=== PATIENT | male | born 1970 | race Caucasian/White ===

== ENCOUNTER → 2017-12-13 12:40 | Outpatient (POV) | payer MEDICARE, OTHER, SELFPAY | PROVIDERS: Visit Provider Neurological Surgery | DX: Z00.00 Encounter for general adult medical examination without abnormal findings (principal) ==

== ENCOUNTER 2019-10-15 13:18 | Inpatient (IN) ==
--- NOTE | 2019-10-15 13:45 | Emergency Department Note ---
ED Disposition Clinical Impression: Hyponatremia, Hypokalemia Disposition: Admitted As Inpatient Condition on Discharge: Fair - Critical Care Critical Care Time: No Attestation: On 10/15/19, the high probability of a clinically significant, sudden or life threatening deterioration of the following system(s) required my full and direct attention, intervention and personal management. The time I documented below is in addition to time spent performing reported procedures but includes the following listed in this critical care notation. Medical Decision Making - Medical Records Medical records reviewed: Yes: I reviewed the patient's medical records. - Myron Inquiry Pt receiving controlled substance: No Vital Signs: 10/15/19 13:19 10/15/19 13:36 Temperature 98.5 F Temperature Source Oral Pulse Rate [Right Brachial] 71 69 Respiratory Rate 18 Blood Pressure [Right Arm] 85/40 L 90/45 L Blood Pressure Mean [Right Arm] 55 60 Blood Pressure Source [Right Arm] Manual Cuff/ Doppler Manual Cuff/ Auscultation Blood Pressure Position [Right Arm] Sitting 02 Sat by Pulse Oximetry 98 98 Oxygen Delivery Method Room Air - Lab Data Lab Results 10/15/19 14:00: WBC 7.7, RBC 4.15 L, Hgb 10.8 L, Hct 33.3 L, MCV 80.2, MCH 26.1 L, MCHC 32.5, RDW 20.6 H, Plt Count 216, MPV 7.7, Neut % (Auto) 85.2 H, Lymph % (Auto) 9.1 L, [place] % (Auto) 4.9, Eos % (Auto) 0.6, Baso % (Auto) 0.1, Neut # (Auto) 6.5, Lymph # (Auto) 0.7, [place] # (Auto) 0.4, Eos # (Auto) 0.1, Baso # (Auto) 0.0 10/15/19 14:00: Sodium 121 L, Potassium 2.2 L*, Chloride 81 L, Carbon Dioxide 39 H, Anion Gap 3.2 L, BUN 7, Creatinine 0.59 L, Estimated Creat Clear 128, Estimated GFR 147, Est GFR ( Amer) 177, Glucose 86, Calcium 7.7 L 10/15/19 14:00: B-Natriuretic Peptide 88 Result diagrams: 10/15/19 14:00 10/15/19 14:00 Orders (Tests/Meds): ED MEDICATIONS Discontinued Medications Generic Name Dose Route Start Last Admin Trade Name Gwen PRN Reason Stop Dose Admin Potassium Chloride 40 meq 10/15/19 14:29 Klor-Con 20meq Tablet PO 10/15/19 14:30 ONCE ONE ORDERS Category Date Time Status Complete Blood Count Auto Diff Stat Lab 10/15/19 14:00 Results Potassium Stat Lab 10/15/19 14:29 Ordered EKG Request [ECG Request by Dr/Nse] Stat Y 10/15/19 14:31 Ordered - ECG Data Tracing #1 I reviewed this ECG and interpreted as documented below: EKG shows a paced rhythm. No STEMI. Expected wide QRS with associated prolonged QTC. Medical Decision Narrative: Patient with baseline blood pressure. I was able to speak with [facility] staff who states that they are primarily concerned about some increasing swelling on the left side of the body. This is not appreciated on my exam. He has no unilateral calf swelling or tenderness. He is already on Xarelto. He has a very low Well's score and my pretest probablility for DVT is very low. Patient has absolutely no complaints. No respiratory distress, oxygen saturation 98%. Labs do show that he has significant hyponatremia and hypokalemia. He does take Flomax and spironolactone which is likely contributing to these electrolyte abnormalities. Given oral potassium replacement, 40 mEq and currently getting a bolus of fluids. I discussed this case with Dr. Baker and patient will be admitted for further management. General Adult HPI - General Chief complaint: Weakness Stated complaint: swelling Time Seen by Provider: 10/15/19 13:45 Mode of Arrival: EMS Limitations: No Limitations Description of Symptoms (Recalled from ER Triage Doc. by RN): Pt sent from [facility] [place] with c/o left side swelling, hypotension and currently being treated for UTI - History of Present Illness HPI narrative: This is a 49-year-old male with a past medical history significant for congestive heart failure, cerebral palsy, hyperlipidemia who presents to the emergency department for evaluation of extremity swelling and low blood pressure. Patient states that he always has low blood pressure and this is likely true given his history of significant chronic heart failure. Previous primary care visit on 10/06 shows a baseline blood pressure of 87 systolic. Patient actually has no acute complaints and states he is just here because the caregivers at his assisted living facility said that he was "swallowing". They report here his that they were concerned about left-sided swelling of the body and low blood pressure. Patient is currently being treated for UTI with Keflex, has no complaints in this arena. He denies any difficulty breathing. - Related Data Home Medications Medication Instructions Recorded Confirmed aspirin 81 mg tablet,delayed 81 mg PO DAILY 03/03/19 10/06/19 release atorvastatin 20 mg tablet 20 mg PO DAILY 03/03/19 10/06/19 budesonide-formoterol HFA 160 2 puff INHALATION BID 03/03/19 10/06/19 mcg-4.5 mcg/actuation aerosol inhaler buspirone 15 mg tablet 15 mg PO QID tab 03/03/19 10/06/19 divalproex 250 mg tablet,delayed 750 mg PO BID tab 03/03/19 10/06/19 release fluticasone propionate 220 1 puff INHALATION BID 03/03/19 10/06/19 mcg/actuation HFA aerosol inhaler ipratropium-albuterol 0.5 mg-3 3 ml INHALATION QID PRN 03/03/19 10/06/19 mg(2.5 mg base)/3 mL nebulization soln isosorbide mononitrate 30 mg 30 mg PO DAILY 03/03/19 10/06/19 tablet,extended release 24 hr lisinopril 2.5 mg tablet 2.5 mg PO DAILY 03/03/19 10/06/19 lorazepam 0.5 mg tablet 0.5 mg PO QHS PRN 03/03/19 10/06/19 magnesium oxide 400 mg PO BID 03/03/19 10/06/19 metoprolol succinate 50 mg 50 mg PO DAILY 03/03/19 10/06/19 tablet,extended release 24 hr mirtazapine 7.5 mg tablet 7.5 mg PO BID tab 03/03/19 10/06/19 multivitamin 1 tab PO DAILY 03/03/19 10/06/19 nitroglycerin 0.4 mg sublingual 0.4 mg SUBLINGUAL Q5-15M PRN 03/03/19 10/06/19 tablet omeprazole 20 mg capsule,delayed 20 mg PO DAILY 03/03/19 10/06/19 release oxycodone-acetaminophen 10 mg-325 1 tab PO Q8H PRN 03/03/19 10/06/19 mg tablet polyethylene glycol 3350 17 17 g PO DAILY 03/03/19 10/06/19 gram/dose oral powder rivaroxaban 20 mg tablet 20 mg PO DAILY 03/03/19 10/06/19 sennosides 8.6 mg tablet 8.6 mg PO BID PRN 03/03/19 10/06/19 spironolactone 25 mg tablet 25 mg PO DAILY 03/03/19 10/06/19 amiodarone 200 mg tablet 100 mg PO DAILY tab 06/02/19 10/06/19 finasteride 5 mg tablet 5 mg PO DAILY 06/02/19 10/06/19 furosemide 40 mg tablet 40 mg PO DAILY 06/02/19 10/06/19 gabapentin 600 mg tablet 300 mg PO TID tab 06/02/19 10/06/19 levothyroxine 25 mcg capsule 25 mcg PO DAILY 06/02/19 10/06/19 olanzapine 10 mg tablet 20 mg PO DAILY tab 06/02/19 10/06/19 risperidone 1 mg tablet 2 mg PO BID tab 06/02/19 10/06/19 sertraline 100 mg tablet 100 mg PO DAILY tab 06/02/19 10/06/19 tamsulosin 0.4 mg capsule 0.4 mg PO DAILY 06/02/19 10/06/19 Allergies Allergy/AdvReac Type Severity Reaction Status Date / Time acetaminophen [ACETAMINOPHEN] Allergy Unknown Verified 10/06/19 11:08 hydrocodone [HYDROCODONE] Allergy Unknown Verified 10/06/19 11:08 Penicillins [PENICILLINS] Allergy Unknown Verified 10/06/19 11:08 [facility] History - Hepatitis A Screen Drug use history?: No High risk sexual behaviors?: No History of sexually transmitted infection?: No Currently employed?: No Childcare worker?: No Do you have indoor plumbing?: Yes Do you have electricity?: Yes Attestation statement:: This patient has been screened for Hepatitis A risk factors. I have reviewed the patient's past medical history: Yes Medical History: Reports:: Anxiety, Cardiomyopathy, Chronic Obstructive Pulmonary Disease (COPD), Coronary Artery Disease, Hyperlipidemia, Internal Pacemaker Other Surgeries: Yes: Pacemaker Amputation: No Fractures: No - Social History Smoking Status: Current every day smoker Tobacco Type: cigarettes #Yrs smoked (if former smoker): 30 Alcohol Intake: never Alcohol Intake Frequency:: 0-2 drinks per day Substance Use Type: denies use Occupational Status: disabled, unemployed Housing: assisted living facility Household Members: caregiver - Psychiatric History Pschychiatric History:: Reports:: Anxiety Family Hx:: Coronary Artery Disease ROS Obtained: Yes All systems reviewed & no additional complaints Physical Exam - General General appearance: alert, in no apparent distress - Head Head exam: atraumatic, normocephalic - Neck Neck exam: Present: normal inspection, trachea midline - Chest Chest inspection: Present: normal inspection, symmetric chest wall rise. Absent: tenderness - Respiratory Respiratory exam: Present: normal lung sounds bilaterally. Absent: respiratory distress - Cardiovascular Cardiovascular exam: Present: regular rate, normal rhythm. Absent: JVD - Abdominal Exam Abdominal exam: Present: soft, normal bowel sounds. Absent: distention, tenderness, guarding - Extremities Exam Extremities exam: Present: normal inspection, other (No unilateral swelling or tenderness). Absent: tenderness, pedal edema, calf tenderness - Neurological Exam Neurological exam: Present: alert, other (Answering questions appropriately, moving extremities with equal strength) - Skin Skin exam: Present: warm, dry
[2019-10-15 14:19] LABS: Basophils % 0.1 % (0.1-2.0); Eosinophils # 0.1 K/mm3 (0.0-0.4); Eosinophils % 0.6 % (0.1-12.0); Hematocrit 33.3 % (42.0-52.0); Hemoglobin 10.8 g/dL (14.1-18.0); Lymphocytes # 0.7 K/mm3 (0.7-4.5); Lymphocytes % 9.1 % (10-50); Mean Corpuscular HGB Conc 32.5 g/dL (31.8-35.4); Mean Corpuscular Volume 80.2 fl (80-94); Mean Platelet Volume 7.7 fl (7.4-10.4); Monocytes # 0.4 K/mm3 (0.1-1.0); Monocytes % 4.9 % (1.7-9.3); Neutrophils # 6.5 K/mm3 (1.8-7.8); Neutrophils % 85.2 % (37.0-80.0); Platelet Count 216 K/mm3 (142-424); Red Blood Count 4.15 M/mm3 (4.60-6.20); Red Cell Distribution Width 20.6 % (11.5-17.5); White Blood Count 7.7 K/mm3 (4.8-10.8)
[2019-10-15 14:21] LABS: Anion Gap 3.2 mEq/L (5-15); Calcium 7.7 mg/dL (8.5-10.1)
[2019-10-15 14:43] LABS: Hypochromasia 2+; Lymphocytes % 9 % (10-50); Monocytes % 3 % (2-9); Neutrophils % 88 % (42-76); Total Cells Counted 100
--- NOTE | 2019-10-15 16:32 | History & Physical Report ---
*Admission Date: 10/15/19 *Chief complaint: weakness *History of present illness: this [facility]m from [facility] sent to ed for eval of swelling -he was seen in the ed - is is a 49-year-old male with a past medical history significant for congestive heart failure, cerebral palsy, hyperlipidemia who presents to the emergency department for evaluation of extremity swelling and low blood pressure. Patient states that he always has low blood pressure and this is likely true given his history of significant chronic heart failure. Previous primary care visit on 10/06 shows a baseline blood pressure of 87 systolic. Patient actually has no acute complaints and states he is just here because the caregivers at his as sisted living facility said that he was "swallowing". They report here his that they were concerned about left-sided swelling of the body and low blood pressure. Patient is currently being treated for UTI with Keflex, has no complaints in this arena. He denies any difficulty breathing. pt was admittted with hypokalemia and hyponatremia and possible uti [facility] History I have reviewed the patient's past medical history: Yes Medical History: Reports:: Anxiety, Cardiomyopathy, Chronic Obstructive Pulmonary Disease (COPD), Coronary Artery Disease, Hyperlipidemia, Internal Pacemaker Denies:: Diabetes Mellitus Type 2 *Have you ever received a pneumonia vaccine?: No (refuses) *Have you received a flu vaccine this season?: No (refuses) Other Medical History: Reports: Cataracts Other Surgeries: Yes: Pacemaker Amputation: No Fractures: No - *Social History Smoking Status: Current every day smoker Tobacco Type: cigarettes # Packs/Day (cigarettes): 1 #Yrs smoked (if former smoker): 30 Alcohol Intake: never Alcohol Intake Frequency:: 0-2 drinks per day Substance Use Type: denies use *Occupational Status:: disabled, unemployed Housing: assisted living facility Household Members: caregiver *Travel in the last 8 weeks: None - Psychiatric History Pschychiatric History:: Reports:: Anxiety Family Hx:: Coronary Artery Disease Review of Systems - Review of Systems Review of systems:: pertinent systems reviewed and negative unless documented below - Constitutional Denies fever(s) - Eyes Denies change in vision - ENT Reports dry mouth - *Cardiovascular Reports shortness of breath - *Respiratory Reports shortness of breath, Denies cough - *Gastrointestinal Denies bright, red blood in stools - *Genitourinary Denies blood in urine - *Musculoskeletal Denies joint pain - Integumentary/Breasts Denies rash - *Neurologic Reports weakness, Denies localized weakness, Denies seizure-like activity - Psychiatric Reports anxiety Meds Home Medications Medication Instructions Recorded Confirmed Type atorvastatin 20 mg tablet 20 mg PO HS 03/03/19 10/15/19 History buspirone 15 mg tablet 15 mg PO QID tab 03/03/19 10/15/19 History divalproex 250 mg tablet,delayed 750 mg PO BID tab 03/03/19 10/15/19 History release isosorbide mononitrate 30 mg 30 mg PO DAILY 03/03/19 10/15/19 History tablet,extended release 24 hr lisinopril 2.5 mg tablet 2.5 mg PO BID 03/03/19 10/15/19 History lorazepam 0.5 mg tablet 0.5 mg PO QHS PRN 03/03/19 10/15/19 History metoprolol succinate 50 mg 50 mg PO DAILY 03/03/19 10/15/19 History tablet,extended release 24 hr mirtazapine 7.5 mg tablet 7.5 mg PO HS tab 03/03/19 10/15/19 History nitroglycerin 0.4 mg sublingual 0.4 mg SUBLINGUAL Q5MINP PRN 03/03/19 10/15/19 History tablet oxycodone-acetaminophen 10 mg-325 1 tab PO Q6HP PRN 03/03/19 10/15/19 History mg tablet rivaroxaban 20 mg tablet 20 mg PO DAILY 03/03/19 10/15/19 History spironolactone 25 mg tablet 25 mg PO DAILY 03/03/19 10/15/19 History amiodarone 200 mg tablet 100 mg PO DAILY tab 06/02/19 10/15/19 History furosemide 40 mg tablet 40 mg PO DAILY 06/02/19 10/15/19 History levothyroxine 25 mcg capsule 25 mcg PO DAILY 06/02/19 10/15/19 History risperidone 1 mg tablet 1 mg PO BID tab 06/02/19 10/15/19 History tamsulosin 0.4 mg capsule 0.4 mg PO DAILY 06/02/19 10/15/19 History Albuterol Sulfate [Albuterol HFA 2 puffs IH Q4HP PRN 10/15/19 10/15/19 History Inhaler] Aspirin [Aspirin 81mg chewable 81 mg PO DAILY 10/15/19 10/15/19 History tab] Cyanocobalamin (Vitamin B-12) 1,000 mcg PO DAILY 10/15/19 10/15/19 History [Vitamin B-12 1000mcg Tablet] Gabapentin [Gabapentin 300mg Cap] 300 mg PO TID 10/15/19 10/15/19 History Nicotine [Nicotine Patch 21 mg TD DAILY 10/15/19 10/15/19 History 21mg/24hrs] OLANZapine [Olanzapine] 10 mg PO BID 10/15/19 10/15/19 History Pantoprazole Sodium [Protonix 40mg 40 mg PO DAILY 10/15/19 10/15/19 History tablet] Sertraline HCl [Zoloft 50mg tablet] 50 mg PO PM 10/15/19 10/15/19 History Sertraline HCl [Zoloft] 100 mg PO DAILY 10/15/19 10/15/19 History cephALEXin [cephALEXin 500mg 500 mg PO BID 10/15/19 10/15/19 History capsule*] guaiFENesin [Mucinex 600mg tablet] 600 mg PO BID 10/15/19 10/15/19 History Allergies Allergy/AdvReac Type Severity Reaction Status Date / Time acetaminophen [ACETAMINOPHEN] Allergy Unknown Verified 10/06/19 11:08 hydrocodone [HYDROCODONE] Allergy Unknown Verified 10/06/19 11:08 Penicillins [PENICILLINS] Allergy Unknown Verified 10/06/19 11:08 Exam Vital signs and Labs for Last 24 Hours: Temp Pulse Resp BP Pulse Ox 98.5 F 74 18 110/75 90 L 10/15/19 15:31 10/15/19 15:31 10/15/19 15:31 10/15/19 15:31 10/15/19 15:23 Laboratory Results - last 24 hr 10/15/19 14:00: WBC 7.7, RBC 4.15 L, Hgb 10.8 L, Hct 33.3 L, MCV 80.2, MCH 26.1 L, MCHC 32.5, RDW 20.6 H, Plt Count 216, MPV 7.7, Neut % (Auto) 85.2 H, Lymph % (Auto) 9.1 L, [place] % (Auto) 4.9, Eos % (Auto) 0.6, Baso % (Auto) 0.1, Neut # (Auto) 6.5, Lymph # (Auto) 0.7, [place] # (Auto) 0.4, Eos # (Auto) 0.1, Baso # (Auto) 0.0, Total Counted 100, Neutrophils % (Manual) 88 H, Lymphocytes % (Manual) 9 L, Monocytes % (Manual) 3, Platelet Estimate Normal, Hypochromasia 2+ 10/15/19 14:00: Sodium 121 L, Potassium 2.2 L*, Chloride 81 L, Carbon Dioxide 39 H, Anion Gap 3.2 L, BUN 7, Creatinine 0.59 L, Estimated Creat Clear 128, Estimated GFR 147, Est GFR ( Amer) 177, Glucose 86, Calcium 7.7 L 10/15/19 14:00: B-Natriuretic Peptide 88 I & O for Last 24 hours: Intake & Output 10/13/19 10/14/19 10/15/19 10/16/19 11:59 11:59 11:59 11:59 Weight 116 lb 9 oz - Constitutional no acute distress, thin - *Routine HEENT Exam Head: Present: normocephalic Eye: Present: EOMI, PERRL ENT: Present: mucous membranes dry - *Routine Neck Exam Absent: JVD - *Routine Respiratory Exam Present: CTA bilaterally - *Routine Cardiovascular Exam Present: RRR, murmur - *Routine Abdominal Exam Present: soft - *Routine Extremities Exam Absent: calf tenderness - *Routine Skin Exam Present: intact - *Routine Neurological Exam Present: alert, CN II-XII intact. Absent: motor deficit - Routine Psychiatric Exam Present: anxious. Absent: good insight Assessment and Plan (1) Hypokalemia Current visit: Yes Status: Acute Category: Medical Code(s): E87.6 - Hypokalemia (2) Hyponatremia Current visit: Yes Status: Acute Category: Medical Code(s): E87.1 - Hypo- osmolality and hyponatremia (3) Chronic pain Current visit: No Status: Acute Qualifiers: Chronic pain type: other chronic pain Qualified Code(s): G89.29 - Other chr onic pain Category: Medical Code(s): G89.29 - Other chronic pain (4) Anemia Current visit: Yes Status: Acute Qualifiers: Anemia type: unspecified type Qualified Code(s): D64.9 - Anemia, unspecified Category: Medical Code(s): D64.9 - Anemia, unspecified (5) CAD (coronary artery disease) Current visit: No Status: Chronic Qualifiers: Coronary Disease-Associated Artery/Lesion type: [place] artery [place] vs. transplanted heart: [place] heart Associated angina: with other forms of angina Qualified Code(s): I25.118 - Atherosclerotic heart disease of [place] coronary artery with other forms of angina pectoris Category: Medical Code(s): I25.10 - Atherosclerotic heart disease of [place] coronary artery without angina pectoris (6) Hypocalcemia Current visit: Yes Status: Acute Category: Medical Code(s): E83.51 - Hypocalcemia (7) UTI (urinary tract infection) Current visit: Yes Status: Acute Qualifiers: Urinary tract infection type: site unspecified Hematuria presence: without hematuria Qualified Code(s): N39.0 - Urinary tract infection, site not s pecified Category: Medical Code(s): N39.0 - Urinary tract infection, site not specified
[2019-10-15 17:51] LABS: Anion Gap 4.4 mEq/L (5-15); Calcium 7.5 mg/dL (8.5-10.1)
[2019-10-15 20:44] LABS: Anion Gap 4.5 mEq/L (5-15); Calcium 7.7 mg/dL (8.5-10.1)
[2019-10-15 22:01] LABS: Microscopic, Urine URINE MICROSCOPIC (MICROSCOPIC)
[2019-10-15 22:03] LABS: Bilirubin,Urine Negative (Negative); Blood, Urine TRACE-I (Negative); Color,Urine YELLOW (Yellow); Glucose,Urine (UA) Negative (Negative); Ketones,Urine Negative (Negative); Leukocyte Esterase,Urine 3+ (Negative); Protein,Urine Negative (Negative); Urobilinogen,Urine >=8.0 EU/dl (0.2)
[2019-10-15 22:06] LABS: Appearance,Urine Slightly Cloudy (Clear)
[2019-10-15 22:17] LABS: Bacteria,Urine 2+ /lpf; Mucus,Urine 1+ /lpf
[2019-10-16 07:37] LABS: Lymphocytes # 0.7 K/mm3 (0.7-4.5)
[2019-10-16 07:46] LABS: Basophils % 0.3 % (0.1-2.0); Eosinophils # 0.2 K/mm3 (0.0-0.4); Eosinophils % 2.2 % (0.1-12.0); Hematocrit 38.4 % (42.0-52.0); Lymphocytes % 10.8 % (10-50); Mean Corpuscular HGB Conc 32.7 g/dL (31.8-35.4); Mean Corpuscular Volume 80.7 fl (80-94); Mean Platelet Volume 7.9 fl (7.4-10.4); Monocytes # 0.6 K/mm3 (0.1-1.0); Neutrophils # 5.3 K/mm3 (1.8-7.8); Neutrophils % 77.8 % (37.0-80.0); Platelet Count 188 K/mm3 (142-424); Red Blood Count 4.76 M/mm3 (4.60-6.20); Red Cell Distribution Width 20.7 % (11.5-17.5); White Blood Count 6.8 K/mm3 (4.8-10.8)
[2019-10-16 07:49] LABS: Hemoglobin 12.6 g/dL (14.1-18.0)
[2019-10-16 07:54] LABS: Anion Gap 7.3 mEq/L (5-15)
--- NOTE | 2019-10-16 09:16 | Electrocardiograph Report ---
APPROVED REPORT Exam: Resting ECG HR:68 bpm ECG Measurements Heart Rate 68 AXES AK 124 P 64 QRSd 150 QRS 262 QT 522 T53 QTc 555 <Conclusion> Electronic atrial pacemaker Right bundle branch block Anteroseptal infarct, age undetermined Abnormal ECG Electronically signed by : Tip Contreras, 10/16/2019 09:15:56
--- NOTE | 2019-10-16 11:12 | Consult Report ---
*Admission Date: 10/15/19 *Reason for consult:: Pt with indwelling hurtado *History of present illness: Patient is a 49-year-old white male with a history of congestive heart failure, cerebral palsy presents to the emergency room yesterday at [facility] for evaluation of lower extremity swelling and low blood pressure. Patient was coherent and is able to give some history. States he sent to [facility] nursing staff concerned. He is currently being treated for UTI with Keflex and has an indwelling Hurtado catheter for which urology was consulted. We were able to contact the patient's assisted-living staff who gave us more information about his past medical history. He sees a urologist in [facility] by the name of Steff Macias every 3 months. Apparently he has a history of prostate cancer which is being followed with watchful waiting. It is not documented why his Hurtado catheter was placed he has had it for almost a year and it is changed monthly by home health at the facility. He was last changed about 3 weeks ago by report. Urine culture was performed here but is pending. His white count is normal at 6.8. Kidney function is normal at 0.58. Clear urine in his catheter. Urinalysis did show positive nitrates 10-20 white cells but this was obtained from the catheter. [facility] History Medical History: Reports:: Anxiety, Cardiomyopathy, Chronic Obstructive Pulmonary Disease (COPD), Coronary Artery Disease, Hyperlipidemia, Internal Pacemaker Denies:: Diabetes Mellitus Type 2 *Have you ever received a pneumonia vaccine?: No (refuses) *Have you received a flu vaccine this season?: No (refuses) Other Medical History: Reports: Cataracts Other Surgeries: Yes: Pacemaker Amputation: No Fractures: No - *Social History Smoking Status: Current every day smoker Tobacco Type: cigarettes # Packs/Day (cigarettes): 1 #Yrs smoked (if former smoker): 30 Alcohol Intake: never Alcohol Intake Frequency:: 0-2 drinks per day Substance Use Type: denies use *Occupational Status:: disabled, unemployed Housing: assisted living facility Household Members: caregiver *Travel in the last 8 weeks: None - Psychiatric History Pschychiatric History:: Reports:: Anxiety Family Hx:: Coronary Artery Disease Review of Systems - Review of Systems Review of systems:: pertinent systems reviewed and negative unless documented below - *Neurologic Reports weakness, Denies localized weakness, Denies seizure-like activity Meds Home Medications Medication Instructions Recorded Confirmed Type atorvastatin 20 mg tablet 20 mg PO HS 03/03/19 10/15/19 History buspirone 15 mg tablet 15 mg PO QID tab 03/03/19 10/15/19 History divalproex 250 mg tablet,delayed 750 mg PO BID tab 03/03/19 10/15/19 History release isosorbide mononitrate 30 mg 30 mg PO DAILY 03/03/19 10/15/19 History tablet,extended release 24 hr lisinopril 2.5 mg tablet 2.5 mg PO BID 03/03/19 10/15/19 History lorazepam 0.5 mg tablet 0.5 mg PO QHS PRN 03/03/19 10/15/19 History metoprolol succinate 50 mg 50 mg PO DAILY 03/03/19 10/15/19 History tablet,extended release 24 hr mirtazapine 7.5 mg tablet 7.5 mg PO HS tab 03/03/19 10/15/19 History nitroglycerin 0.4 mg sublingual 0.4 mg SUBLINGUAL Q5MINP PRN 03/03/19 10/15/19 History tablet oxycodone-acetaminophen 10 mg-325 1 tab PO Q6HP PRN 03/03/19 10/15/19 History mg tablet rivaroxaban 20 mg tablet 20 mg PO DAILY 03/03/19 10/15/19 History spironolactone 25 mg tablet 25 mg PO DAILY 03/03/19 10/15/19 History amiodarone 200 mg tablet 100 mg PO DAILY tab 06/02/19 10/15/19 History furosemide 40 mg tablet 40 mg PO DAILY 06/02/19 10/15/19 History levothyroxine 25 mcg capsule 25 mcg PO DAILY 06/02/19 10/15/19 History risperidone 1 mg tablet 1 mg PO BID tab 06/02/19 10/15/19 History tamsulosin 0.4 mg capsule 0.4 mg PO DAILY 06/02/19 10/15/19 History Albuterol Sulfate [Albuterol HFA 2 puffs IH Q4HP PRN 10/15/19 10/15/19 History Inhaler] Aspirin [Aspirin 81mg chewable 81 mg PO DAILY 10/15/19 10/15/19 History tab] Cyanocobalamin (Vitamin B-12) 1,000 mcg PO DAILY 10/15/19 10/15/19 History [Vitamin B-12 1000mcg Tablet] Gabapentin [Gabapentin 300mg Cap] 300 mg PO TID 10/15/19 10/15/19 History Nicotine [Nicotine Patch 21 mg TD DAILY 10/15/19 10/15/19 History 21mg/24hrs] OLANZapine [Olanzapine] 10 mg PO BID 10/15/19 10/15/19 History Pantoprazole Sodium [Protonix 40mg 40 mg PO DAILY 10/15/19 10/15/19 History tablet] Sertraline HCl [Zoloft 50mg tablet] 50 mg PO PM 10/15/19 10/15/19 History Sertraline HCl [Zoloft] 100 mg PO DAILY 10/15/19 10/15/19 History cephALEXin [cephALEXin 500mg 500 mg PO BID 10/15/19 10/15/19 History capsule*] guaiFENesin [Mucinex 600mg tablet] 600 mg PO BID 10/15/19 10/15/19 History Allergies Allergy/AdvReac Type Severity Reaction Status Date / Time acetaminophen [ACETAMINOPHEN] Allergy Unknown Verified 10/06/19 11:08 hydrocodone [HYDROCODONE] Allergy Unknown Verified 10/06/19 11:08 Penicillins [PENICILLINS] Allergy Unknown Verified 10/06/19 11:08 Exam Vital signs and Labs for Last 24 Hours: Temp Pulse Resp BP Pulse Ox 98.1 F 69 18 117/67 95 10/16/19 08:00 10/16/19 08:00 10/16/19 08:00 10/16/19 08:00 10/16/19 08:00 Laboratory Results - last 24 hr 10/15/19 14:00: WBC 7.7, RBC 4.15 L, Hgb 10.8 L, Hct 33.3 L, MCV 80.2, MCH 26.1 L, MCHC 32.5, RDW 20.6 H, Plt Count 216, MPV 7.7, Neut % (Auto) 85.2 H, Lymph % (Auto) 9.1 L, [place] % (Auto) 4.9, Eos % (Auto) 0.6, Baso % (Auto) 0.1, Neut # (Auto) 6.5, Lymph # (Auto) 0.7, [place] # (Auto) 0.4, Eos # (Auto) 0.1, Baso # (Auto) 0.0, Total Counted 100, Neutrophils % (Manual) 88 H, Lymphocytes % (Manual) 9 L, Monocytes % (Manual) 3, Platelet Estimate Normal, Hypochromasia 2+ 10/15/19 14:00: Sodium 121 L, Potassium 2.2 L*, Chloride 81 L, Carbon Dioxide 39 H, Anion Gap 3.2 L, BUN 7, Creatinine 0.59 L, Estimated Creat Clear 128, Estimated GFR 147, Est GFR ( Amer) 177, Glucose 86, Calcium 7.7 L 10/15/19 14:00: B-Natriuretic Peptide 88 10/15/19 17:18: Sodium 125 L, Potassium 2.4 L*, Chloride 86 L, Carbon Dioxide 37 H, Anion Gap 4.4 L, BUN 7, Creatinine 0.72 D, Estimated Creat Clear 94, Estimated GFR 117, Est GFR ( Amer) 141 D, Glucose 95, Calcium 7.5 L 10/15/19 20:06: Sodium 126 L, Potassium 2.5 L*, Chloride 88 L, Carbon Dioxide 36 H, Anion Gap 4.5 L, BUN 6 L, Creatinine 0.67 L, Estimated Creat Clear 101, Estimated GFR 127, Est GFR ( Amer) 153, Glucose 83, Calcium 7.7 L 10/15/19 21:46: Urine Color Yellow, Urine Appearance Slightly cloudy, Urine pH 7.0, Ur Specific [place] 1.010, Urine Protein Negative, Urine Glucose (UA) Negative, Urine Ketones Negative, Urine Blood Trace-i, Urine Nitrate Positive, Urine Bilirubin Negative, Urine Urobilinogen >=8.0, Ur Leukocyte Esterase 3+ A, Urine RBC 3-5, Urine WBC 10-20, Urine Bacteria 2+, Urine Mucus 1+ 10/16/19 00:37: Potassium 3.4 L D 10/16/19 07:30: Sodium 125 L, Potassium 3.3 L, Chloride 87 L, Carbon Dioxide 34 H, Anion Gap 7.3, BUN 6 L, Creatinine 0.58 L, Estimated Creat Clear 119, Estimated GFR 150, Est GFR ( Amer) 181, Glucose 85, Calcium 8.0 L 10/16/19 07:30: WBC 6.8, RBC 4.76, Hgb 12.6 L D, Hct 38.4 L, MCV 80.7, MCH 26.4 L, MCHC 32.7, RDW 20.7 H, Plt Count 188, MPV 7.9, Neut % (Auto) 77.8, Lymph % (Auto) 10.8, [place] % (Auto) 9.0, Eos % (Auto) 2.2, Baso % (Auto) 0.3, Neut # (Auto) 5.3, Lymph # (Auto) 0.7, [place] # (Auto) 0.6, Eos # (Auto) 0.2, Baso # (Auto) 0.0 I & O for Last 24 hours: Intake & Output 10/13/19 10/14/19 10/15/19 10/16/19 23:59 23:59 23:59 23:59 Intake Total 512 / 752 2518 / 2518 Output Total 1201 / 1201 1851 / 1851 Balance -689 / -449 667 / 667 Weight 52.872 kg 54.006 kg Microbiology Reports for the Last 24 Hours: Microbiology 10/15/19 21:46 Urine,Catheterized Urine Culture - Preliminary Narrative: Thin white male in no apparent distress Head is normocephalic Pupils equal round react light Neck is symmetric Normal respiratory effort, patient does have some mild pectus incavatus. Abdomen normal to visual inspection Alert and oriented Internal Medicine - CN: Reslt - Labs CBC & Chem 7: 10/16/19 07:30 10/16/19 07:30 Labs: Short CBC 10/15/19 10/16/19 Range/Units 14:00 07:30 WBC 7.7 6.8 (4.8-10.8) K/mm3 Hgb 10.8 L 12.6 L D (14.1-18.0) g/dL Hct 33.3 L 38.4 L (42.0-52.0) % Plt Count 216 188 (142-424) K/mm3 [facility] 10/15/19 10/15/19 10/15/19 14:00 17:18 20:06 Sodium 121 L 125 L 126 L Potassium 2.2 L* 2.4 L* 2.5 L* Chloride 81 L 86 L 88 L Carbon Dioxide 39 H 37 H 36 H BUN 7 7 6 L Creatinine 0.59 L 0.72 D 0.67 L Glucose 86 95 83 Calcium 7.7 L 7.5 L 7.7 L 10/16/19 10/16/19 00:37 07:30 Sodium 125 L Potassium 3.4 L D 3.3 L Chloride 87 L Carbon Dioxide 34 H BUN 6 L Creatinine 0.58 L Glucose 85 Calcium 8.0 L Urine 10/15/19 Range/Units 21:46 Urine Color Yellow (Yellow) Urine Appearance Slightly cloudy (Clear) Urine pH 7.0 (5.0-8.5) Ur Specific [place] 1.010 (1.005-1.030) Urine Protein Negative (Negative) Urine Glucose (UA) Negative (Negative) Assessment and Plan (1) Hypokalemia Current visit: Yes Status: Acute Category: Medical Code(s): E87.6 - Hypokalemia (2) Hyponatremia Current visit: Yes Status: Acute Category: Medical Code(s): E87.1 - Hypo- osmolality and hyponatremia (3) Chronic pain Current visit: No Status: Acute Qualifiers: Chronic pain type: other chronic pain Qualified Code(s): G89.29 - Other chronic pain Category: Medical Code(s): G89.29 - Other chronic pain (4) Anemia Current visit: Yes Status: Acute Qualifiers: Anemia type: unspecified type Qualified Code(s): D64.9 - Anemia, unspecified Category: Medical Code(s): D64.9 - Anemia, unspecified (5) CAD (coronary artery disease) Current visit: No Status: Chronic Qualifiers: Coronary Disease-Associated Artery/Lesion type: [place] artery [place] vs. transplanted heart: [place] heart Associated angina: with other forms of angina Qualified Code(s): I25.118 - Atherosclerotic heart disease of [place] coronary artery with other forms of angina pectoris Category: Medical Code(s): I25.10 - Atherosclerotic heart disease of [place] coronary artery without angina pectoris (6) Hypocalcemia Current visit: Yes Status: Acute Category: Medical Code(s): E83.51 - H ypocalcemia (7) UTI (urinary tract infection) Current visit: Yes Status: Acute Qualifiers: Urinary tract infection type: site unspecified Hematuria presence: without hematuria Qualified Code(s): N39.0 - Urinary tract infection, site not specified Category: Medical Code(s): N39.0 - Urinary tract infection, site not specified (8) Cerebral palsy Current visit: Yes Status: Acute Category: Medical Code(s): G80.9 - Cerebral palsy, unspecified 49-year-old white male with cerebral palsy. He sees a urologist in [facility] for management of his prostate cancer. Is currently being monitored closely with serial PSAs. He has an indwelling Hurtado catheter that has been present for about a year. This is changed monthly. He sees his urologist every 3 months. No current acute urologic events. Patient to continue follow-ups with Dr. Macias in [place] for management of his Hurtado catheter and his prostate cancer.
--- NOTE | 2019-10-16 12:19 | Discharge Summary ---
General - General Admission date:: 10/15/19 Discharge date: 10/16/19 HPI HPI: this wm from nursing home sent to ed for eval of swelling -he was seen in the ed - is is a 49-year-old male with a past medical history significant for congestive heart failure, cerebral palsy, hyperlipidemia who presents to the emergency department for evaluation of extremity swelling and low blood pressure. Patient states that he always has low blood pressure and this is likely true given his history of significant chronic heart failure. Previous primary care visit on 10/06 shows a baseline blood pressure of 87 systolic. Patient actually has no acute complaints and states he is just here because the caregivers at his assisted living facility said that he was "swallowing". They report here his that they were concerned about left-sided swelling of the body and low blood pressure. Patient is currently being treated for UTI with Keflex, has no complaints in this arena. He denies any difficulty breathing. pt was admittted with hypokalemia and hyponatremia and possible uti Hospital Course Hospital Course: this wm from nursing home sent to ed for eval of swelling -he was seen in the ed - is is a 49-year-old male with a past medical history significant for congestive heart failure, cerebral palsy, hyperlipidemia who presents to the emergency department for evaluation of extremity swelling and low blood pressure. Patient states that he always has low blood pressure and this is likely true given his history of significant chronic heart failure. Previous primary care visit on 10/06 shows a baseline blood pressure of 87 systolic. Patient actually has no acute complaints and states he is just here because the caregivers at his assisted living facility said that he was "swallowing". They report here his that they were concerned about left-sided swelling of the body and low blood pressure. Patient is currently being treated for UTI with Keflex, has no complaints in this arena. He denies any difficulty breathing. pt was admittted with hypokalemia and hyponatremia and possible uti Urology has seen and recommends: Patient is a 49-year-old white male with a history of congestive heart failure, cerebral palsy presents to the emergency room yesterday at [facility] for evaluation of lower extremity swelling and low blood pressure. Patient was coherent and is able to give some history. States he sent to [facility] nursing staff concerned. He is currently being treated for UTI with Keflex and has an indwelling Gonzalez catheter for which urology was consulted. We were able to contact the patient's assisted-living staff who gave us more information about his past medical history. He sees a urologist in [facility] by the name of Steff Macias every 3 months. Apparently he has a history of prostate cancer which is being followed with watchful waiting. It is not documented why his Gonzalez catheter was placed he has had it for almost a year and it is changed monthly by home health at the facility. He was last changed about 3 weeks ago by report. Urine culture was performed here but is pending. His white count is normal at 6.8. Kidney function is normal at 0.58. Clear urine in his catheter. Urinalysis did show positive nitrates 10-20 white cells but this was obtained from the catheter (Per Dr. Vu). 49-year-old white male with cerebral palsy. He sees a urologist in [facility] for management of his prostate cancer. Is currently being monitored closely with serial PSAs. He has an indwelling Gonzalez catheter that has been present for about a year. This is changed monthly. He sees his urologist every 3 months. No current acute urologic events. Patient to continue follow-ups with Dr. Macias in [place] for management of his Gonzalez catheter and his prostate cancer (Per Dr. Vu). Objective Vital signs: Temp Pulse Resp BP Pulse Ox 98.1 F 69 18 117/67 95 10/16/19 08:00 10/16/19 08:00 10/16/19 08:00 10/16/19 08:00 10/16/19 08:00 Results Labs on day of discharge: Labs from last 24 hours 10/16/19 10/16/19 10/16/19 07:30 07:30 00:37 WBC 6.8 RBC 4.76 Hgb 12.6 L D Hct 38.4 L MCV 80.7 MCH 26.4 L MCHC 32.7 RDW 20.7 H Plt Count 188 MPV 7.9 Neut % (Auto) 77.8 Lymph % (Auto) 10.8 [place] % (Auto) 9.0 Eos % (Auto) 2.2 Baso % (Auto) 0.3 Neut # (Auto) 5.3 Lymph # (Auto) 0.7 [place] # (Auto) 0.6 Eos # (Auto) 0.2 Baso # (Auto) 0.0 Total Counted Neutrophils % (Manual) Lymphocytes % (Manual) Monocytes % (Manual) Platelet Estimate Hypochromasia Sodium 125 L Potassium 3.3 L 3.4 L D Chloride 87 L Carbon Dioxide 34 H Anion Gap 7.3 BUN 6 L Creatinine 0.58 L Estimated Creat Clear 119 Estimated GFR 150 Est GFR ( Amer) 181 Glucose 85 Calcium 8.0 L B-Natriuretic Peptide Urine Color Urine Appearance Urine pH Ur Specific [place] Urine Protein Urine Glucose (UA) Urine Ketones Urine Blood Urine Nitrate Urine Bilirubin Urine Urobilinogen Ur Leukocyte Esterase Urine RBC Urine WBC Urine Bacteria Urine Mucus 10/15/19 10/15/19 10/15/19 21:46 20:06 17:18 WBC RBC Hgb Hct MCV MCH MCHC RDW Plt Count MPV Neut % (Auto) Lymph % (Auto) [place] % (Auto) Eos % (Auto) Baso % (Auto) Neut # (Auto) Lymph # (Auto) [place] # (Auto) Eos # (Auto) Baso # (Auto) Total Counted Neutrophils % (Manual) Lymphocytes % (Manual) Monocytes % (Manual) Platelet Estimate Hypochromasia Sodium 126 L 125 L Potassium 2.5 L* 2.4 L* Chloride 88 L 86 L Carbon Dioxide 36 H 37 H Anion Gap 4.5 L 4.4 L BUN 6 L 7 Creatinine 0.67 L 0.72 D Estimated Creat Clear 101 94 Estimated GFR 127 117 Est GFR ( Amer) 153 141 D Glucose 83 95 Calcium 7.7 L 7.5 L B-Natriuretic Peptide Urine Color Yellow Urine Appearance Slightly cloudy Urine pH 7.0 Ur Specific [place] 1.010 Urine Protein Negative Urine Glucose (UA) Negative Urine Ketones Negative Urine Blood Trace-i Urine Nitrate Positive Urine Bilirubin Negative Urine Urobilinogen >=8.0 Ur Leukocyte Esterase 3+ A Urine RBC 3-5 Urine WBC 10-20 Urine Bacteria 2+ Urine Mucus 1+ 10/15/19 10/15/19 10/15/19 14:00 14:00 14:00 WBC 7.7 RBC 4.15 L Hgb 10.8 L Hct 33.3 L MCV 80.2 MCH 26.1 L MCHC 32.5 RDW 20.6 H Plt Count 216 MPV 7.7 Neut % (Auto) 85.2 H Lymph % (Auto) 9.1 L [place] % (Auto) 4.9 Eos % (Auto) 0.6 Baso % (Auto) 0.1 Neut # (Auto) 6.5 Lymph # (Auto) 0.7 [place] # (Auto) 0.4 Eos # (Auto) 0.1 Baso # (Auto) 0.0 Total Counted 100 Neutrophils % (Manual) 88 H Lymphocytes % (Manual) 9 L Monocytes % (Manual) 3 Platelet Estimate Normal Hypochromasia 2+ Sodium 121 L Potassium 2.2 L* Chloride 81 L Carbon Dioxide 39 H Anion Gap 3.2 L BUN 7 Creatinine 0.59 L Estimated Creat Clear 128 Estimated GFR 147 Est GFR ( Amer) 177 Glucose 86 Calcium 7.7 L B-Natriuretic Peptide 88 Urine Color Urine Appearance Urine pH Ur Specific [place] Urine Protein Urine Glucose (UA) Urine Ketones Urine Blood Urine Nitrate Urine Bilirubin Urine Urobilinogen Ur Leukocyte Esterase Urine RBC Urine WBC Urine Bacteria Urine Mucus Preliminary micro results at discharge 10/15/19 21:46 Urine Culture - Preliminary Urine,Catheterized DS: Diagnosis - Discharge Diagnosis (1) Hypokalemia Status: Acute (2) Hyponatremia Status: Acute (3) Chronic pain Status: Acute (4) Anemia Status: Acute (5) CAD (coronary artery disease) Status: Chronic (6) Hypocalcemia Status: Acute (7) UTI (urinary tract infection) Status: Acute (8) Cerebral palsy Status: Acute Discharge Plan - Patient Discharge Instructions ACTIVITY: Continue current activity DIET: continue same diet - Follow up Plan Home Medications: Home Medications Medication Instructions Recorded Confirmed Type atorvastatin 20 mg tablet 20 mg PO HS 03/03/19 10/15/19 History buspirone 15 mg tablet 15 mg PO QID tab 03/03/19 10/15/19 History divalproex 250 mg tablet,delayed 750 mg PO BID tab 03/03/19 10/15/19 History release isosorbide mononitrate 30 mg 30 mg PO DAILY 03/03/19 10/15/19 History tablet,extended release 24 hr lisinopril 2.5 mg tablet 2.5 mg PO BID 03/03/19 10/15/19 History lorazepam 0.5 mg tablet 0.5 mg PO QHS PRN 03/03/19 10/15/19 History metoprolol succinate 50 mg 50 mg PO DAILY 03/03/19 10/15/19 History tablet,extended release 24 hr mirtazapine 7.5 mg tablet 7.5 mg PO HS tab 03/03/19 10/15/19 History nitroglycerin 0.4 mg sublingual 0.4 mg SUBLINGUAL Q5MINP PRN 03/03/19 10/15/19 History tablet oxycodone-acetaminophen 10 mg-325 1 tab PO Q6HP PRN 03/03/19 10/15/19 History mg tablet rivaroxaban 20 mg tablet 20 mg PO DAILY 03/03/19 10/15/19 History spironolactone 25 mg tablet 25 mg PO DAILY 03/03/19 10/15/19 History amiodarone 200 mg tablet 100 mg PO DAILY tab 06/02/19 10/15/19 History furosemide 40 mg tablet 40 mg PO DAILY 06/02/19 10/15/19 History levothyroxine 25 mcg capsule 25 mcg PO DAILY 06/02/19 10/15/19 History risperidone 1 mg tablet 1 mg PO BID tab 06/02/19 10/15/19 History tamsulosin 0.4 mg capsule 0.4 mg PO DAILY 06/02/19 10/15/19 History Albuterol Sulfate [Albuterol HFA 2 puffs IH Q4HP PRN 10/15/19 10/15/19 History Inhaler] Aspirin [Aspirin 81mg chewable 81 mg PO DAILY 10/15/19 10/15/19 History tab] Cyanocobalamin (Vitamin B-12) 1,000 mcg PO DAILY 10/15/19 10/15/19 History [Vitamin B-12 1000mcg Tablet] Gabapentin [Gabapentin 300mg Cap] 300 mg PO TID 10/15/19 10/15/19 History Nicotine [Nicotine Patch 21 mg TD DAILY 10/15/19 10/15/19 History 21mg/24hrs] OLANZapine [Olanzapine] 10 mg PO BID 10/15/19 10/15/19 History Pantoprazole Sodium [Protonix 40mg 40 mg PO DAILY 10/15/19 10/15/19 History tablet] Sertraline HCl [Zoloft 50mg tablet] 50 mg PO PM 10/15/19 10/15/19 History Sertraline HCl [Zoloft] 100 mg PO DAILY 10/15/19 10/15/19 History cephALEXin [cephALEXin 500mg 500 mg PO BID 10/15/19 10/15/19 History capsule*] guaiFENesin [Mucinex 600mg tablet] 600 mg PO BID 10/15/19 10/15/19 History Prescriptions/Medication Reconciliation: No Action lorazepam 0.5 mg tablet 0.5 mg PO QHS PRN PRN Reason: Anxiety atorvastatin 20 mg tablet 20 mg PO HS buspirone 15 mg tablet 15 mg PO QID tab divalproex 250 mg tablet,delayed release 750 mg PO BID tab isosorbide mononitrate 30 mg tablet,extended release 24 hr 30 mg PO DAILY lisinopril 2.5 mg tablet 2.5 mg PO BID metoprolol succinate 50 mg tablet,extended release 24 hr 50 mg PO DAILY mirtazapine 7.5 mg tablet 7.5 mg PO HS tab nitroglycerin 0.4 mg sublingual tablet 0.4 mg SUBLINGUAL Q5MINP PRN PRN Reason: Chest Pain oxycodone-acetaminophen 10 mg-325 mg tablet 1 tab PO Q6HP PRN PRN Reason: pain spironolactone 25 mg tablet 25 mg PO DAILY rivaroxaban 20 mg tablet 20 mg PO DAILY amiodarone 200 mg tablet 100 mg PO DAILY tab risperidone 1 mg tablet 1 mg PO BID tab tamsulosin 0.4 mg capsule 0.4 mg PO DAILY levothyroxine 25 mcg capsule 25 mcg PO DAILY furosemide 40 mg tablet 40 mg PO DAILY Nicotine [Nicotine Patch 21mg/24hrs] 21 mg TD DAILY OLANZapine [Olanzapine] 10 mg PO BID Sertraline HCl [Zoloft 50mg tablet] 50 mg PO PM Albuterol Sulfate [Albuterol HFA Inhaler] 2 puffs IH Q4HP PRN PRN Reason: Shortness Of Breath Or Wheezing Cyanocobalamin (Vitamin B-12) [Vitamin B-12 1000mcg Tablet] 1,000 mcg PO DAILY Sertraline HCl [Zoloft] 100 mg PO DAILY Aspirin [Aspirin 81mg chewable tab] 81 mg PO DAILY Gabapentin [Gabapentin 300mg Cap] 300 mg PO TID guaiFENesin [Mucinex 600mg tablet] 600 mg PO BID Pantoprazole Sodium [Protonix 40mg tablet] 40 mg PO DAILY cephALEXin [cephALEXin 500mg capsule*] 500 mg PO BID - Problem Reconciliation Problems Reviewed?: Yes
--- NOTE | 2019-10-16 13:58 | Consult Report ---
History of Present Illness Consult date: 10/16/19 Requesting physician: Timbo Baker Consult reason: shortness of breath Chief complaint: SOA Additional Medical History:: 1. Ischemic Cardiomyopathy with LV aneurysm and V. tach, on Amiodarone and Xarelto A. AICD generator changed, 2009 and 02/2017 ([facility]) B. 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 CAD A. CABG at age 24 B. [facility], 05/2019, for pre-op evaluation for prostate surgery ANGIOGRAPHIC RESULTS: 1. The left main artery normal 2. The left anterior descending artery ostially occluded 3. The ramus intermedius is a moderate size vessel with mild 10-20% stenoses 4. The circumflex artery is a nondominant yet still large vessel with moderate vascular ectasia and slow filling but no stenosis greater than 10% 5. The right coronary artery is a large caliber codominant vessel with moderate vascular ectasia accompanied by slow CHRISTEN II flow 6. The GAITAN ventriculogram reveals severe left ventricular dilatation with severely reduced ejection fraction estimated at 20%. The apex is calcified aneurysmal with an apical intramural thrombus 7. The left ventricular end-diastolic pressure 10 mmHg 8. The saphenous vein graft to the right coronary artery is ostially occluded 9. The saphenous vein graft to the LAD is widely patent 10. The saphenous vein graft to the diagonal artery is widely patent IMPRESSION: 1. Adequate coronary artery revascularization as described above 2. Severely reduced ejection fraction with severe left ventricular dilatation accompanied by large aneurysmal calcified apical thrombosed apex 3. Normal left ventricular end-diastolic pressure 4. Chronically occluded saphenous vein graft to the right coronary artery 5. Widely patent saphenous vein graft to a diagonal artery 6. Widely patent saphenous vein graft to an LAD which supplies the aneurysmal akinetic anterior apical wall PLAN: 1. Patient is a acceptable risk to proceed with prostate surgery. 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 2. Correlation should be used perioperatively not to fluid overload patient. 3. Ongoing therapy for systolic congestive heart failure as well as standard therapy for ischemic heart disease 3. History of CVA, age 32 A. Chronic anticoagulation 4. Neurofibromatosis 5. Seizure Disorder 6. Tobacco use A. COPD/asthma 7. HTN 8. Hyperlipidemia History of present illness: 49-year-old white male resident of [facility] was sent to [facility] ER for evaluation of swelling. Patient has significant coronary history as noted above including congestive heart failure. BNP this admission is 88 but patient became more short of breath last evening and responded well to IV Lasix. Chest x-ray is pending at this time. Patient states that shortness of breath seems to be back to baseline. Patient's hyponatremia and hypokalemia have responded to therapy but are not yet back to normal. [facility] History Medical History: Reports:: Anxiety, Cardiomyopathy, Chronic Obstructive Pulmon barbra Disease (COPD), Coronary Artery Disease, Hyperlipidemia, Internal Pacemaker Denies:: Diabetes Mellitus Type 2 *Have you ever received a pneumonia vaccine?: No (refuses) *Have you received a flu vaccine this season?: No (refuses) Other Medical History: Reports: Cataracts Other Surgeries: Yes: Pacemaker Amputation: No Fractures: No - *Social History Smoking Status: Current every day smoker Tobacco Type: cigarettes # Packs/Day (cigarettes): 1 #Yrs smoked (if former smoker): 30 Alcohol Intake: never Alcohol Intake Frequency:: 0-2 drinks per day Substance Use Type: denies use *Occupational Status:: disabled, unemployed Housing: assisted living facility Household Members: caregiver *Travel in the last 8 weeks: None - Psychiatric History Pschychiatric History:: Reports:: Anxiety Family Hx:: Coronary Artery Disease Meds Home Medications Medication Instructions Recorded Confirmed Type atorvastatin 20 mg tablet 20 mg PO HS 03/03/19 10/15/19 History buspirone 15 mg tablet 15 mg PO QID tab 03/03/19 10/15/19 History divalproex 250 mg tablet,delayed 750 mg PO BID tab 03/03/19 10/15/19 History release isosorbide mononitrate 30 mg 30 mg PO DAILY 03/03/19 10/15/19 History tablet,extended release 24 hr lisinopril 2.5 mg tablet 2.5 mg PO BID 03/03/19 10/15/19 History lorazepam 0.5 mg tablet 0.5 mg PO QHS PRN 03/03/19 10/15/19 History metoprolol succinate 50 mg 50 mg PO DAILY 03/03/19 10/15/19 History tablet,extended release 24 hr mirtazapine 7.5 mg tablet 7.5 mg PO HS tab 03/03/19 10/15/19 History nitroglycerin 0.4 mg sublingual 0.4 mg SUBLINGUAL Q5MINP PRN 03/03/19 10/15/19 History tablet oxycodone-acetaminophen 10 mg-325 1 tab PO Q6HP PRN 03/03/19 10/15/19 History mg tablet rivaroxaban 20 mg tablet 20 mg PO DAILY 03/03/19 10/15/19 History spironolactone 25 mg tablet 25 mg PO DAILY 03/03/19 10/15/19 History amiodarone 200 mg tablet 100 mg PO DAILY tab 06/02/19 10/15/19 History furosemide 40 mg tablet 40 mg PO DAILY 06/02/19 10/15/19 History levothyroxine 25 mcg capsule 25 mcg PO DAILY 06/02/19 10/15/19 History risperidone 1 mg tablet 1 mg PO BID tab 06/02/19 10/15/19 History tamsulosin 0.4 mg capsule 0.4 mg PO DAILY 06/02/19 10/15/19 History Albuterol Sulfate [Albuterol HFA 2 puffs IH Q4HP PRN 10/15/19 10/15/19 History Inhaler] Aspirin [Aspirin 81mg chewable 81 mg PO DAILY 10/15/19 10/15/19 History tab] Cyanocobalamin (Vitamin B-12) 1,000 mcg PO DAILY 10/15/19 10/15/19 History [Vitamin B-12 1000mcg Tablet] Gabapentin [Gabapentin 300mg Cap] 300 mg PO TID 10/15/19 10/15/19 History Nicotine [Nicotine Patch 21 mg TD DAILY 10/15/19 10/15/19 History 21mg/24hrs] OLANZapine [Olanzapine] 10 mg PO BID 10/15/19 10/15/19 History Pantoprazole Sodium [Protonix 40mg 40 mg PO DAILY 10/15/19 10/15/19 History tablet] Sertraline HCl [Zoloft 50mg tablet] 50 mg PO PM 10/15/19 10/15/19 History Sertraline HCl [Zoloft] 100 mg PO DAILY 10/15/19 10/15/19 History cephALEXin [cephALEXin 500mg 500 mg PO BID 10/15/19 10/15/19 History capsule*] guaiFENesin [Mucinex 600mg tablet] 600 mg PO BID 10/15/19 10/15/19 History Allergies Allergy/AdvReac Type Severity Reaction Status Date / Time acetaminophen [ACETAMINOPHEN] Allergy Unknown Verified 10/06/19 11:08 hydrocodone [HYDROCODONE] Allergy Unknown Verified 10/06/19 11:08 Penicillins [PENICILLINS] Allergy Unknown Verified 10/06/19 11:08 Review of Systems - Review of Systems Review of systems:: pertinent systems reviewed and negative unless documented below - *Cardiovascular Reports chest pain, Reports shortness of breath - *Respiratory Reports chest congestion, Reports shortness of breath - *Gastrointestinal Denies abdominal pain, Denies vomiting - *Genitourinary Denies blood in urine Comments: Chronic catheter at this time due to history of prostate cancer surgery. Catheter is changed once a month. - *Musculoskeletal Reports back pain, Denies joint pain - *Neurologic Reports weakness, Denies localized weakness, Denies seizure-like activity Exam Vital signs and Labs for Last 24 Hours: Temp Pulse Resp BP Pulse Ox 97.9 F 68 16 118/90 93 L 10/16/19 12:00 10/16/19 12:00 10/16/19 13:02 10/16/19 12:00 10/16/19 12:00 Laboratory Results - last 24 hr 10/15/19 14:00: WBC 7.7, RBC 4.15 L, Hgb 10.8 L, Hct 33.3 L, MCV 80.2, MCH 26.1 L, MCHC 32.5, RDW 20.6 H, Plt Count 216, MPV 7.7, Neut % (Auto) 85.2 H, Lymph % (Auto) 9.1 L, [place] % (Auto) 4.9, Eos % (Auto) 0.6, Baso % (Auto) 0.1, Neut # (Auto) 6.5, Lymph # (Auto) 0.7, [place] # (Auto) 0.4, Eos # (Auto) 0.1, Baso # (Auto) 0.0, Total Counted 100, Neutrophils % (Manual) 88 H, Lymphocytes % (Man ual) 9 L, Monocytes % (Manual) 3, Platelet Estimate Normal, Hypochromasia 2+ 10/15/19 14:00: Sodium 121 L, Potassium 2.2 L*, Chloride 81 L, Carbon Dioxide 39 H, Anion Gap 3.2 L, BUN 7, Creatinine 0.59 L, Estimated Creat Clear 128, Estimated GFR 147, Est GFR ( Amer) 177, Glucose 86, Calcium 7.7 L 10/15/19 14:00: B-Natriuretic Peptide 88 10/15/19 17:18: Sodium 125 L, Potassium 2.4 L*, Chloride 86 L, Carbon Dioxide 37 H, Anion Gap 4.4 L, BUN 7, Creatinine 0.72 D, Estimated Creat Clear 94, Estimated GFR 117, Est GFR ( Amer) 141 D, Glucose 95, Calcium 7.5 L 10/15/19 20:06: Sodium 126 L, Potassium 2.5 L*, Chloride 88 L, Carbon Dioxide 36 H, Anion Gap 4.5 L, BUN 6 L, Creatinine 0.67 L, Estimated Creat Clear 101, Estimated GFR 127, Est GFR ( Amer) 153, Glucose 83, Calcium 7.7 L 10/15/19 21:46: Urine Color Yellow, Urine Appearance Slightly cloudy, Urine pH 7.0, Ur Specific [place] 1.010, Urine Protein Negative, Urine Glucose (UA) Negative, Urine Ketones Negative, Urine Blood Trace-i, Urine Nitrate Positive, U rine Bilirubin Negative, Urine Urobilinogen >=8.0, Ur Leukocyte Esterase 3+ A, Urine RBC 3-5, Urine WBC 10-20, Urine Bacteria 2+, Urine Mucus 1+ 10/16/19 00:37: Potassium 3.4 L D 10/16/19 07:30: Sodium 125 L, Potassium 3.3 L, Chloride 87 L, Carbon Dioxide 34 H, Anion Gap 7.3, BUN 6 L, Creatinine 0.58 L, Estimated Creat Clear 119, Estimated GFR 150, Est GFR ( Amer) 181, Glucose 85, Calcium 8.0 L 10/16/19 07:30: WBC 6.8, RBC 4.76, Hgb 12.6 L D, Hct 38.4 L, MCV 80.7, MCH 26.4 L, MCHC 32.7, RDW 20.7 H, Plt Count 188, MPV 7.9, Neut % (Auto) 77.8, Lymph % (Auto) 10.8, [place] % (Auto) 9.0, Eos % (Auto) 2.2, Baso % (Auto) 0.3, Neut # (Auto) 5.3, Lymph # (Auto) 0.7, [place] # (Auto) 0.6, Eos # (Auto) 0.2, Baso # (Auto) 0.0 I & O for Last 24 hours: Intake & Output 10/14/19 10/15/19 10/16/19 10/17/19 11:59 11:59 11:59 11:59 Intake Total 3030 / 3030 Output Total 3052 / 3052 Balance - Weight 119 lb 1 oz Microbiology Reports for the Last 24 Hours: Microbiology 10/15/19 21:46 Urine,Catheterized Urine Culture - Preliminary - *Routine HEENT Exam Head: Present: normocephalic Eye: Present: EOMI, PERRL ENT: Present: mucous membranes moist - *Routine Neck Exam Present: supple. Absent: JVD, carotid bruit - *Routine Respiratory Exam Present: rales, rhonchi, wheezes. Absent: accessory muscle use - *Routine Cardiovascular Exam Present: RRR. Absent: murmur, gallop, rubs - *Routine Abdominal Exam Present: soft. Absent: tenderness, distended, guarding - *Routine Extremities Exam Absent: edema, calf tenderness - *Routine Neurological Exam Present: alert, oriented X3, moving all extremities Assessment and Plan (1) Hypokalemia Current visit: Yes Status: Acute Category: Medical Code(s): E87.6 - Hypokalemia (2) Hyponatremia Current visit: Yes Status: Acute Category: Medical Code(s): E87.1 - Hypo- osmolality and hyponatremia (3) Chronic pain Current visit: No Status: Acute Qualifiers: Chronic pain type: other chronic pain Qualified Code(s): G89.29 - Other chronic pain Category: Medical Code(s): G89.29 - Other chronic pain (4) Anemia Current visit: Yes Status: Acute Qualifiers: Anemia type: unspecified type Qualified Code(s): D64.9 - Anemia, unspecified Category: Medical Code(s): D64.9 - Anemia, unspecified (5) CAD (coronary artery disease) Current visit: No Status: Chronic Qualifiers: Coronary Disease-Associated Artery/Lesion type: [place] artery [place] vs. transplanted heart: [place] heart Associated angina: with other forms of angina Qualified Code(s): I25.118 - Atherosclerotic heart disease of [place] coronary artery with other forms of angina pectoris Category: Medical Code(s): I25.10 - Atherosclerotic heart disease of [place] coronary artery without angina pectoris (6) Hypocalcemia Current visit: Yes Status: Acute Category: Medical Code(s): E83.51 - H ypocalcemia (7) UTI (urinary tract infection) Current visit: Yes Status: Acute Qualifiers: Urinary tract infection type: site unspecified Hematuria presence: without hematuria Qualified Code(s): N39.0 - Urinary tract infection, site not specified Category: Medical Code(s): N39.0 - Urinary tract infection, site not specified (8) Cerebral palsy Current visit: Yes Status: Acute Category: Medical Code(s): G80.9 - Cerebral palsy, unspecified - Assessment and plan all Dx Assessment and Plan for all problems:: 1. Obtain PA and lateral chest x-ray. 2. Patient is on daily Lasix and spironolactone which likely has been held due to the patient's hypokalemia and hyponatremia. Will restart aldactone at 25 mg BID and reduce lasix to 20 mg daily. 3. Ischemic Cardiomyopathy with history of V. Tach and AICD in situ. Continue metoprolol, isosorbide mononitrate and amiodarone. At last office visit, he was still on lisinopril but noted to have some orthostatic dizziness. His lisinopril likely has been discontinued in the interim, will restart at 2.5 mg daily. 4. Recommend monitoring overnight and repeating BMP in AM.
--- NOTE | 2019-10-16 18:03 | Progress Note ---
Internal Medicine - PN: Subj *Date: 10/16/19 *Time: 08:00 Interval history: 49 YOM sitting up in bed, on 2L per N/C. Denies CP or worsened SOA. F/C drng clr yellow urine Exam Vital signs and Labs for Last 24 Hours: Temp Pulse Resp BP Pulse Ox 97.9 F 68 16 118/90 93 L 10/16/19 12:00 10/16/19 12:00 10/16/19 13:02 10/16/19 12:00 10/16/19 12:00 Laboratory Results - last 24 hr 10/15/19 17:18: Sodium 125 L, Potassium 2.4 L*, Chloride 86 L, Carbon Dioxide 37 H, Anion Gap 4.4 L, BUN 7, Creatinine 0.72 D, Estimated Creat Clear 94, Estimated GFR 117, Est GFR ( Amer) 141 D, Glucose 95, Calcium 7.5 L 10/15/19 20:06: Sodium 126 L, Potassium 2.5 L*, Chloride 88 L, Carbon Dioxide 36 H, Anion Gap 4.5 L, BUN 6 L, Creatinine 0.67 L, Estimated Creat Clear 101, Estimated GFR 127, Est GFR ( Amer) 153, Glucose 83, Calcium 7.7 L 10/15/19 21:46: Urine Color Yellow, Urine Appearance Slightly cloudy, Urine pH 7.0, Ur Specific [place] 1.010, Urine Protein Negative, Urine Glucose (UA) Negative, Urine Ketones Negative, Urine Blood Trace-i, Urine Nitrate Positive, Urine Bilirubin Negative, Urine Urobilinogen >=8.0, Ur Leukocyte Esterase 3+ A, Urine RBC 3-5, Urine WBC 10-20, Urine Bacteria 2+, Urine Mucus 1+ 10/16/19 00:37: Potassium 3.4 L D 10/16/19 07:30: Sodium 125 L, Potassium 3.3 L, Chloride 87 L, Carbon Dioxide 34 H, Anion Gap 7.3, BUN 6 L, Creatinine 0.58 L, Estimated Creat Clear 119, Estimated GFR 150, Est GFR ( Amer) 181, Glucose 85, Calcium 8.0 L 10/16/19 07:30: WBC 6.8, RBC 4.76, Hgb 12.6 L D, Hct 38.4 L, MCV 80.7, MCH 26.4 L, MCHC 32.7, RDW 20.7 H, Plt Count 188, MPV 7.9, Neut % (Auto) 77.8, Lymph % (Auto) 10.8, [place] % (Auto) 9.0, Eos % (Auto) 2.2, Baso % (Auto) 0.3, Neut # (Auto) 5.3, Lymph # (Auto) 0.7, [place] # (Auto) 0.6, Eos # (Auto) 0.2, Baso # (Auto) 0.0 I & O for Last 24 hours: Intake & Output 10/13/19 10/14/19 10/15/19 10/16/19 23:59 23:59 23:59 23:59 Intake Total 512 / 752 2518 / 2518 Output Total 1201 / 1201 2276 / 2276 Balance -689 / -449 242 / 242 Weight 116 lb 9 oz 119 lb 1 oz Microbiology Reports for the Last 24 Hours: Microbiology 10/15/19 21:46 Urine,Catheterized Urine Culture - Preliminary - Constitutional no acute distress - *Routine HEENT Exam Head: Present: normocephalic. Absent: scalp tenderness, tenderness of temporal artery Eye: Present: EOMI, PERRL. Absent: periorbital tenderness ENT: Present: mucous membranes dry. Absent: sinus tenderness - *Routine Neck Exam Present: full ROM, trachea midline. Absent: JVD, tracheal deviation - *Routine Respiratory Exam Present: rhonchi, wheezes. Absent: accessory muscle use, CTA bilaterally - *Routine Cardiovascular Exam Present: RRR, murmur - *Routine Abdominal Exam Present: soft, normoactive bowel sounds. Absent: tenderness, firm - *Routine Extremities Exam Present: full ROM. Absent: cyanosis, calf tenderness - Routine Back/Spine/Pelvis Exam Back/Spine: Present: full ROM. Absent: CVA tenderness - *Routine Skin Exam Present: intact. Absent: cyanosis, erythema - *Routine Neurological Exam Present: alert, CN II-XII intact. Absent: hemineglect - Routine Psychiatric Exam Present: normal affect. Absent: auditory hallucinations, tactile hallucinations, agitated Assessment and Plan (1) Hypokalemia Current visit: Yes Status: Acute Category: Medical Code(s): E87.6 - Hypokalemia (2) Hyponatremia Current visit: Yes Status: Acute Category: Medical Code(s): E87.1 - Hypo- osmolality and hyponatremia (3) Chronic pain Current visit: No Status: Acute Qualifiers: Chronic pain type: other chronic pain Qualified Code(s): G89.29 - Other chronic pain Category: Medical Code(s): G89.29 - Other chronic pain (4) Anemia Current visit: Yes Status: Acute Qualifiers: Anemia type: unspecified type Qualified Code(s): D64.9 - Anemia, unspecified Category: Medical Code(s): D64.9 - Anemia, unspecified (5) CAD (coronary artery disease) Current visit: No Status: Chronic Qualifiers: Coronary Disease-Associated Artery/Lesion type: [place] artery [place] vs. transplanted heart: [place] heart Associated angina: with other forms of angina Qualified Code(s): I25.118 - Atherosclerotic heart disease of [place] coronary artery with other forms of angina pectoris Category: Medical Code(s): I25.10 - Atherosclerotic heart disease of [place] coronary artery without angina pectoris (6) Hypocalcemia Current visit: Yes Status: Acute Category: Medical Code(s): E83.51 - Hypocalcemia (7) UTI (urinary tract infection) Current visit: Yes Status: Acute Qualifiers: Urinary tract infection type: site unspecified Hematuria presence: without hematuria Qualified Code(s): N39.0 - Urinary tract infection, site not specified Category: Medical Code(s): N39.0 - Urinary tract infection, site not specified (8) Cerebral palsy Current visit: Yes Status: Acute Category: Medical Code(s): G80.9 - Cerebral palsy, unspecified (9) UTI (urinary tract infection) due to urinary indwelling Gonzalez catheter Current visit: Yes Status: Acute Qualifiers: Indwelling urinary catheter type: indwelling urethral catheter Category: Medical Code(s): T83.511A - Infection and inflammatory reaction due to indwelling urethral catheter, initial encounter; N39.0 - Urinary tract infection, site not specified - Assessment and plan all Dx Assessment and Plan for all problems:: Rounded w/ Dr Baker, all orders per Dr. Baker 1. Keflex 500mg PO TID 2. Cards Consult Urology has seen and recommends: Patient is a 49-year-old white male with a history of congestive heart failure, cerebral palsy presents to the emergency room yesterday at [facility] for evaluation of lower extremity swelling and low blood pressure. Patient was coherent and is able to give some history. States he sent to [facility] nursing staff concerned. He is currently being treated for UTI with Keflex and has an indwelling Gonzalez catheter for which urology was consulted. We were able to contact the patient's assisted-living staff who gave us more information about his past medical history. He sees a urologist in [facility] by the name of Steff Macias every 3 months. Apparently he has a history of prostate cancer which is being followed with watchful waiting. It is not documented why his Gonzalez catheter was placed he has had it for almost a year and it is changed monthly by home health at the facility. He was last changed about 3 weeks ago by report. Urine culture was performed here but is pending. His white count is normal at 6.8. Kidney function is normal at 0.58. Clear urine in his catheter. Urinalysis did show positive nitrates 10-20 white cells but this was obtained from the catheter (Per Dr. Vu). 49-year-old white male with cerebral palsy. He sees a urologist in [facility] for management of his prostate cancer. Is currently being monitored closely with serial PSAs. He has an indwelling Gonzalez catheter that has been present for about a year. This is changed monthly. He sees his urologist every 3 months. No current acute urologic events. Patient to continue follow-ups with Dr. Macias in [place] for management of his Gonzalez catheter and his prostate cancer (Per Dr. Vu).
[2019-10-17 06:40] LABS: Anion Gap 9.9 mEq/L (5-15); Calcium 7.9 mg/dL (8.5-10.1)
[2019-10-17 07:27] LABS: Basophils % 0.1 % (0.1-2.0); Eosinophils # 0.1 K/mm3 (0.0-0.4); Eosinophils % 1.8 % (0.1-12.0); Hematocrit 36.1 % (42.0-52.0); Hemoglobin 11.8 g/dL (14.1-18.0); Lymphocytes # 0.8 K/mm3 (0.7-4.5); Lymphocytes % 12.3 % (10-50); Mean Corpuscular HGB Conc 32.7 g/dL (31.8-35.4); Mean Corpuscular Volume 81.1 fl (80-94); Monocytes # 0.5 K/mm3 (0.1-1.0); Monocytes % 8.2 % (1.7-9.3); Neutrophils # 5.1 K/mm3 (1.8-7.8); Neutrophils % 77.6 % (37.0-80.0); Platelet Count 228 K/mm3 (142-424); Red Blood Count 4.45 M/mm3 (4.60-6.20); Red Cell Distribution Width 20.6 % (11.5-17.5); White Blood Count 6.6 K/mm3 (4.8-10.8)
--- NOTE | 2019-10-17 09:05 | Progress Note ---
Subjective Date: 10/17/19 Time: 09:00 Principal diagnosis: Hypokalemia, hyponatremia, hypomagnesemia Interval history: 49 yo WM in bed in NAD. SOA is at baseline per pt. Electrolyte abnormalities noted and supplement ordered. Exam Vital signs and Labs for Last 24 Hours: Temp Pulse Resp BP Pulse Ox 97.8 F 75 19 128/92 H 95 10/17/19 08:00 10/17/19 08:00 10/17/19 08:00 10/17/19 08:00 10/17/19 08:00 Laboratory Results - last 24 hr 10/17/19 05:58: WBC 6.6, RBC 4.45 L, Hgb 11.8 L, Hct 36.1 L, MCV 81.1, MCH 26.5 L, MCHC 32.7, RDW 20.6 H, Plt Count 228, MPV 9.0, Neut % (Auto) 77.6, Lymph % (Auto) 12.3, [place] % (Auto) 8.2, Eos % (Auto) 1.8, Baso % (Auto) 0.1, Neut # (Auto) 5.1, Lymph # (Auto) 0.8, [place] # (Auto) 0.5, Eos # (Auto) 0.1, Baso # (Auto) 0.0 10/17/19 05:58: Sodium 126 L, Potassium 2.9 L*, Chloride 89 L, Carbon Dioxide 30, Anion Gap 9.9, BUN 4 L D, Creatinine 0.50 L, Estimated Creat Clear 140, Estimated GFR 177, Est GFR ( Amer) 215, Glucose 83, Calcium 7.9 L 10/17/19 05:58: Magnesium 1.2 L I & O for Last 24 hours: Intake & Output 10/14/19 10/15/19 10/16/19 10/17/19 11:59 11:59 11:59 11:59 Intake Total 3030 / 3030 240 / 240 Output Total 3052 / 3052 1675 / 1675 Balance -22 / -22 -1435 / -1435 Weight 119 lb 1 oz 121 lb 3 oz Microbiology Reports for the Last 24 Hours: Microbiology 10/15/19 21:46 Urine,Catheterized Urine Culture - Preliminary - *Routine Respiratory Exam Present: CTA bilaterally. Absent: accessory muscle use, rales, rhonchi, wheezes - *Routine Cardiovascular Exam Present: RRR. Absent: murmur, gallop, rubs - *Routine Abdominal Exam Present: soft, distended. Absent: tenderness, guarding - *Routine Neurological Exam Present: alert, oriented X3, moving all extremities Progress Note: A&P (1) Hypokalemia Status: Acute Current Visit: Yes (2) Hyponatremia Status: Acute Current Visit: Yes (3) Chronic pain Status: Acute Current Visit: No (4) Anemia Status: Acute Current Visit: Yes (5) CAD (coronary artery disease) Status: Chronic Current Visit: No (6) Hypocalcemia Status: Acute Current Visit: Yes (7) UTI (urinary tract infection) Status: Acute Current Visit: Yes (8) Cerebral palsy Status: Acute Current Visit: Yes (9) UTI (urinary tract infection) due to urinary indwelling Gonzalez catheter Status: Acute Current Visit: Yes (10) Hypomagnesemia Status: Acute Current Visit: Yes (11) Acute on chronic systolic CHF (congestive heart failure) Status: Acute Current Visit: Yes (12) Chronic systolic heart failure Status: Chronic Current Visit: No Assessment and Plan for All Diagnoses:: 1. Continue diuretic therapy (aldactone and lasix) 2. Supplemental potassium and magnesium ordered 3. Defer workup of abdominal discomfort and diarrhea to Dr. Baker 4. Acute on chronic systolic CHF, resolved/back to baseline 5. Ischemic Cardiomyopathy/AICD/V tach by history, stable on medical therapy including amiodarone therapy.
--- NOTE | 2019-10-17 13:16 | Progress Note ---
Internal Medicine - PN: Subj *Date: 10/17/19 *Time: 13:13 Interval history: pt c/o of abd pain and diarreha Exam Vital signs and Labs for Last 24 Hours: Temp Pulse Resp BP Pulse Ox 97.8 F 71 18 132/86 98 10/17/19 12:00 10/17/19 12:00 10/17/19 12:00 10/17/19 12:00 10/17/19 12:00 Laboratory Results - last 24 hr 10/17/19 05:58: WBC 6.6, RBC 4.45 L, Hgb 11.8 L, Hct 36.1 L, MCV 81.1, MCH 26.5 L, MCHC 32.7, RDW 20.6 H, Plt Count 228, MPV 9.0, Neut % (Auto) 77.6, Lymph % (Auto) 12.3, [place] % (Auto) 8.2, Eos % (Auto) 1.8, Baso % (Auto) 0.1, Neut # (Auto) 5.1, Lymph # (Auto) 0.8, [place] # (Auto) 0.5, Eos # (Auto) 0.1, Baso # (Auto) 0.0 10/17/19 05:58: Sodium 126 L, Potassium 2.9 L*, Chloride 89 L, Carbon Dioxide 30, Anion Gap 9.9, BUN 4 L D, Creatinine 0.50 L, Estimated Creat Clear 140, Estimated GFR 177, Est GFR ( Amer) 215, Glucose 83, Calcium 7.9 L 10/17/19 05:58: Magnesium 1.2 L I & O for Last 24 hours: Intake & Output 10/15/19 10/16/19 10/17/19 10/18/19 11:59 11:59 11:59 11:59 Intake Total 3030 / 3030 680 / 680 Output Total 3052 / 3052 1675 / 1675 Balance -22 / -22 -995 / -995 Weight 119 lb 1 oz 121 lb 3 oz Microbiology Reports for the Last 24 Hours: Microbiology 10/15/19 21:46 Urine,Catheterized Urine Culture - Preliminary - Constitutional no acute distress - *Routine HEENT Exam Head: Present: normocephalic Eye: Present: PERRL ENT: Present: mucous membranes moist - *Routine Neck Exam Present: supple. Absent: lymphadenopathy - *Routine Respiratory Exam Present: CTA bilaterally - *Routine Cardiovascular Exam Present: RRR - *Routine Abdominal Exam Present: soft, normoactive bowel sounds, tenderness - *Routine Exam Comments: hurtado in place draining at bedside - *Routine Extremities Exam Present: full ROM. Absent: cyanosis, clubbing, edema - *Routine Skin Exam Present: warm. Absent: rash - *Routine Neurological Exam Present: alert - Routine Psychiatric Exam Present: normal affect Assessment and Plan (1) Hypokalemia Current visit: Yes Status: Acute Category: Medical Code(s): E87.6 - Hypokalemia (2) Hyponatremia Current visit: Yes Status: Acute Category: Medical Code(s): E87.1 - Hypo- osmolality and hyponatremia (3) Chronic pain Current visit: No Status: Acute Qualifiers: Chronic pain type: other chronic pain Qualified Code(s): G89.29 - Other chronic pain Category: Medical Code(s): G89.29 - Other chronic pain (4) Anemia Current visit: Yes Status: Acute Qualifiers: Anemia type: unspecified type Qualified Code(s): D64.9 - Anemia, unspecified Category: Medical Code(s): D64.9 - Anemia, unspecified (5) CAD (coronary artery disease) Current visit: No Status: Chronic Qualifiers: Coronary Disease-Associated Artery/Lesion type: [place] artery [place] vs. transplanted heart: [place] heart Associated angina: with other forms of angina Qualified Code(s): I25.118 - Atherosclerotic heart disease of [place] coronary artery with other forms of angina pectoris Category: Medical Code(s): I25.10 - Atherosclerotic heart disease of [place] coronary artery without angina pectoris (6) Hypocalcemia Current visit: Yes Status: Acute Category: Medical Code(s): E83.51 - Hypocalcemia (7) UTI (urinary tract infection) Current visit: Yes Status: Acute Qualifiers: Urinary tract infection type: site unspecified Hematuria presence: without hematuria Qualified Code(s): N39.0 - Urinary tract infection, site not specified Category: Medical Code(s): N39.0 - Urinary tract infection, site not specified (8) Cerebral palsy Current visit: Yes Status: Acute Category: Medical Code(s): G80.9 - Cerebral palsy, unspecified (9) UTI (urinary tract infection) due to urinary indwelling [place] catheter Current visit: Yes Status: Acute Qualifiers: Indwelling urinary catheter type: indwelling urethral catheter Category: Medical Code(s): T83.511A - Infection and inflammatory reaction due to indwelling urethral catheter, initial encounter; N39.0 - Urinary tract infection, site not specified (10) Hypomagnesemia Current visit: Yes Status: Acute Category: Medical Code(s): E83.42 - Hypomagnesemia (11) Acute on chronic systolic CHF (congestive heart failure) Current visit: Yes Status: Acute Category: Medical Code(s): I50.23 - Acute on chronic systolic (congestive) heart failure (12) Chronic systolic heart failure Current visit: No Status: Chronic Category: Medical Code(s): I50.22 - Chronic systolic (congestive) heart failure - Assessment and plan all Dx Assessment and Plan for all problems:: rounded with bernice all orders per bernice ct abd replace kcl and magnesium possible dc in am
[2019-10-17 22:49] LABS: Basophils % 0.3 % (0.1-2.0); Eosinophils # 0.1 K/mm3 (0.0-0.4); Hematocrit 37.6 % (42.0-52.0); Hemoglobin 12.2 g/dL (14.1-18.0); Lymphocytes # 0.9 K/mm3 (0.7-4.5); Lymphocytes % 11.9 % (10-50); Mean Corpuscular HGB Conc 32.4 g/dL (31.8-35.4); Mean Corpuscular Volume 82.4 fl (80-94); Monocytes # 0.5 K/mm3 (0.1-1.0); Monocytes % 7.4 % (1.7-9.3); Neutrophils # 5.9 K/mm3 (1.8-7.8); Neutrophils % 79.5 % (37.0-80.0); Platelet Count 222 K/mm3 (142-424); Red Blood Count 4.57 M/mm3 (4.60-6.20); White Blood Count 7.4 K/mm3 (4.8-10.8)
[2019-10-17 22:58] LABS: Albumin Level 2.3 gm/dL (3.4-5.0); Albumin/Globulin Ratio 0.7 (1.1-1.8); Anion Gap 8.4 mEq/L (5-15); Bilirubin,Total 0.4 mg/dL (0.2-1.0); Calcium 8.1 mg/dL (8.5-10.1); Globulin 3.2 gm/dl (1.3-3.2); Total Protein,Serum 5.5 gm/dL (6.4-8.2)
[2019-10-18 06:43] LABS: Basophils % 0.3 % (0.1-2.0); Eosinophils # 0.2 K/mm3 (0.0-0.4); Eosinophils % 2.2 % (0.1-12.0); Hematocrit 38.4 % (42.0-52.0); Hemoglobin 12.2 g/dL (14.1-18.0); Lymphocytes # 0.8 K/mm3 (0.7-4.5); Lymphocytes % 9.8 % (10-50); Mean Corpuscular HGB Conc 31.9 g/dL (31.8-35.4); Mean Corpuscular Volume 83.2 fl (80-94); Mean Platelet Volume 7.5 fl (7.4-10.4); Monocytes # 0.4 K/mm3 (0.1-1.0); Monocytes % 5.8 % (1.7-9.3); Neutrophils # 6.3 K/mm3 (1.8-7.8); Platelet Count 226 K/mm3 (142-424); Red Blood Count 4.62 M/mm3 (4.60-6.20); Red Cell Distribution Width 21.3 % (11.5-17.5); White Blood Count 7.7 K/mm3 (4.8-10.8)
[2019-10-18 06:47] LABS: Anion Gap 10.2 mEq/L (5-15); Calcium 7.9 mg/dL (8.5-10.1)
--- NOTE | 2019-10-18 08:58 | Consult Report ---
*Admission Date: 10/15/19 *Reason for consult:: Abdominal pain *History of present illness: Patient is a 49-year-old male who is a resident of a care home with a history of reported coronary artery disease, ischemic cardiomyopathy with relatively recent echocardiogram revealing an ejection fraction of 20%, previous CABG performed at age 24, apparent history of DVT and prior stroke at age 32 with IVC filter in place on Xarelto with an AICD present for history of reported V. 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 Upon presentation to the emergency department he was found to have electrolyte derangement and mild hypotension. He was admitted for inpatient management. Yesterday he had some complaints of lower abdominal pain and discomfort. Late yesterday evening he had undergone a CT scan of the abdomen and pelvis to evaluate this. This reveals several findings but most notable for "severe ileocolitis with thickened appendix suggesting acute appendicitis with an 18 mm periappendiceal fluid collection suspicious for a small periappendiceal abscess. The appendicitis could be primary or secondary." Surgical consultation was obtained for this morning. History is difficult to obtain from the patient but he does state that he has lower abdominal pain across his right lower quadrant and beltline area. Review of Systems - Review of Systems Review of systems:: unable to obtain - *Neurologic Reports weakness, Denies localized weakness, Denies seizure-like activity [facility] History Medical History: Reports:: Anxiety, Cardiomyopathy, Chronic Obstructive Pulmonary Disease (COPD), Coronary Artery Disease, Hyperlipidemia, Internal Pa cemaker Denies:: Diabetes Mellitus Type 2 *Have you ever received a pneumonia vaccine?: No (refuses) *Have you received a flu vaccine this season?: No (refuses) Other Medical History: Reports: Cataracts Other Surgeries: Yes: Pacemaker Amputation: No Fractures: No - *Social History Smoking Status: Current every day smoker Tobacco Type: cigarettes # Packs/Day (cigarettes): 1 #Yrs smoked (if former smoker): 30 Alcohol Intake: never Alcohol Intake Frequency:: 0-2 drinks per day Substance Use Type: denies use *Occupational Status:: disabled, unemployed Housing: assisted living facility Household Members: caregiver *Travel in the last 8 weeks: None - Psychiatric History Pschychiatric History:: Reports:: Anxiety Family Hx:: Coronary Artery Disease Meds Home Medications Medication Instructions Recorded Confirmed Type atorvastatin 20 mg tablet 20 mg PO HS 03/03/19 10/15/19 History buspirone 15 mg tablet 15 mg PO QID tab 03/03/19 10/15/19 History divalproex 250 mg tablet,delayed 750 mg PO BID tab 03/03/19 10/15/19 History release isosorbide mononitrate 30 mg 30 mg PO DAILY 03/03/19 10/15/19 History tablet,extended release 24 hr lisinopril 2.5 mg tablet 2.5 mg PO BID 03/03/19 10/15/19 History lorazepam 0.5 mg tablet 0.5 mg PO QHS PRN 03/03/19 10/15/19 History metoprolol succinate 50 mg 50 mg PO DAILY 03/03/19 10/15/19 History tablet,extended release 24 hr mirtazapine 7.5 mg tablet 7.5 mg PO HS tab 03/03/19 10/15/19 History nitroglycerin 0.4 mg sublingual 0.4 mg SUBLINGUAL Q5MINP PRN 03/03/19 10/15/19 History tablet oxycodone-acetaminophen 10 mg-325 1 tab PO Q6HP PRN 03/03/19 10/15/19 History mg tablet rivaroxaban 20 mg tablet 20 mg PO DAILY 03/03/19 10/15/19 History spironolactone 25 mg tablet 25 mg PO DAILY 03/03/19 10/15/19 History amiodarone 200 mg tablet 100 mg PO DAILY tab 06/02/19 10/15/19 History furosemide 40 mg tablet 40 mg PO DAILY 06/02/19 10/15/19 History levothyroxine 25 mcg capsule 25 mcg PO DAILY 06/02/19 10/15/19 History risperidone 1 mg tablet 1 mg PO BID tab 06/02/19 10/15/19 History tamsulosin 0.4 mg capsule 0.4 mg PO DAILY 06/02/19 10/15/19 History Albuterol Sulfate [Albuterol HFA 2 puffs IH Q4HP PRN 10/15/19 10/15/19 History Inhaler] Aspirin [Aspirin 81mg chewable 81 mg PO DAILY 10/15/19 10/15/19 History tab] Cyanocobalamin (Vitamin B-12) 1,000 mcg PO DAILY 10/15/19 10/15/19 History [Vitamin B-12 1000mcg Tablet] Gabapentin [Gabapentin 300mg Cap] 300 mg PO TID 10/15/19 10/15/19 History Nicotine [Nicotine Patch 21 mg TD DAILY 10/15/19 10/15/19 History 21mg/24hrs] OLANZapine [Olanzapine] 10 mg PO BID 10/15/19 10/15/19 History Pantoprazole Sodium [Protonix 40mg 40 mg PO DAILY 10/15/19 10/15/19 History tablet] Sertraline HCl [Zoloft 50mg tablet] 50 mg PO PM 10/15/19 10/15/19 History Sertraline HCl [Zoloft] 100 mg PO DAILY 10/15/19 10/15/19 History cephALEXin [cephALEXin 500mg 500 mg PO BID 10/15/19 10/15/19 History capsule*] guaiFENesin [Mucinex 600mg tablet] 600 mg PO BID 10/15/19 10/15/19 History Allergies Allergy/AdvReac Type Severity Reaction Status Date / Time acetaminophen [ACETAMINOPHEN] Allergy Unknown Verified 10/06/19 11:08 hydrocodone [HYDROCODONE] Allergy Unknown Verified 10/06/19 11:08 Penicillins [PENICILLINS] Allergy Unknown Verified 10/06/19 11:08 Exam Vital signs and Labs for Last 24 Hours: Temp Pulse Resp BP Pulse Ox 97.6 F 74 21 100/67 L 94 L 10/18/19 08:00 10/18/19 08:00 10/18/19 08:00 10/18/19 08:00 10/18/19 08:00 Laboratory Results - last 24 hr 10/17/19 22:23: WBC 7.4, RBC 4.57 L, Hgb 12.2 L, Hct 37.6 L, MCV 82.4, MCH 26.7 L, MCHC 32.4, RDW 21.0 H, Plt Count 222, MPV 8.0, Neut % (Auto) 79.5, Lymph % (Auto) 11.9, [place] % (Auto) 7.4, Eos % (Auto) 1.0, Baso % (Auto) 0.3, Neut # (Auto) 5.9, Lymph # (Auto) 0.9, [place] # (Auto) 0.5, Eos # (Auto) 0.1, Baso # (Auto) 0.0 10/17/19 22:23: Sodium 130 L, Potassium 4.4 D, Chloride 94 L, Carbon Dioxide 32, Anion Gap 8.4, BUN 2 L D, Creatinine 0.51 L, Estimated Creat Clear 138, Estimated GFR 173, Est GFR ( Amer) 210, Glucose 84, Calcium 8.1 L, Total Bilirubin 0.4, AST 15, ALT 21, Alkaline Phosphatase 104, Total Protein 5.5 L, Albumin 2.3 L, Globulin 3.2, Albumin/Globulin Ratio 0.7 L, Amylase 23 L, Lipase 46 L 10/18/19 06:20: WBC 7.7, RBC 4.62, Hgb 12.2 L, Hct 38.4 L, MCV 83.2, MCH 26.5 L, MCHC 31.9, RDW 21.3 H, Plt Count 226, MPV 7.5, Neut % (Auto) 82.0 H, Lymph % (Auto) 9.8 L, [place] % (Auto) 5.8, Eos % (Auto) 2.2, Baso % (Auto) 0.3, Neut # (Auto) 6.3, Lymph # (Auto) 0.8, [place] # (Auto) 0.4, Eos # (Auto) 0.2, Baso # (Auto) 0.0 10/18/19 06:20: Sodium 132 L, Potassium 5.2 H, Chloride 99, Carbon Dioxide 28, Anion Gap 10.2, BUN 2 L, Creatinine 0.45 L, Estimated Creat Clear 160, Estimated GFR 200, Est GFR ( Amer) 243, Glucose 80, Calcium 7.9 L I & O for Last 24 hours: Intake & Output 10/15/19 10/16/19 10/17/19 10/18/19 11:59 11:59 11:59 11:59 Intake Total 3030 / 3030 680 / 680 1290 / 1290 Output Total 3052 / 3052 1675 / 1675 3150 / 3150 Balance -22 / -22 -995 / -995 -1860 / -1860 Weight 119 lb 1 oz 121 lb 3 oz 124 lb Microbiology Reports for the Last 24 Hours: Microbiology 10/15/19 21:46 Urine,Catheterized Urine Culture - Preliminary Gram Negative Rods Gram Negative Rods#2 - Constitutional no acute distress - *Routine Respiratory Exam Comments: He has somewhat mildly labored appearing breathing with significant wheezing and somewhat diminished air movement. - *Routine Cardiovascular Exam Comments: Murmur - *Routine Abdominal Exam Comments: Moderately distended. Soft. He does have some guarding in the right lower quadrant. Results - Labs 10/18/19 06:20 10/18/19 06:20 Laboratory Results - last 24 hr 10/17/19 22:23: WBC 7.4, RBC 4.57 L, Hgb 12.2 L, Hct 37.6 L, MCV 82.4, MCH 26.7 L, MCHC 32.4, RDW 21.0 H, Plt Count 222, MPV 8.0, Neut % (Auto) 79.5, Lymph % (Auto) 11.9, [place] % (Auto) 7.4, Eos % (Auto) 1.0, Baso % (Auto) 0.3, Neut # (Auto) 5.9, Lymph # (Auto) 0.9, [place] # (Auto) 0.5, Eos # (Auto) 0.1, Baso # (Auto) 0.0 10/17/19 22:23: Sodium 130 L, Potassium 4.4 D, Chloride 94 L, Carbon Dioxide 32, Anion Gap 8.4, BUN 2 L D, Creatinine 0.51 L, Estimated Creat Clear 138, Estimated GFR 173, Est GFR ( Amer) 210, Glucose 84, Calcium 8.1 L, Total Bilirubin 0.4, AST 15, ALT 21, Alkaline Phosphatase 104, Total Protein 5.5 L, Albumin 2.3 L, Globulin 3.2, Albumin/Globulin Ratio 0.7 L, Amylase 23 L, Lipase 46 L 10/18/19 06:20: WBC 7.7, RBC 4.62, Hgb 12.2 L, Hct 38.4 L, MCV 83.2, MCH 26.5 L, MCHC 31.9, RDW 21.3 H, Plt Count 226, MPV 7.5, Neut % (Auto) 82.0 H, Lymph % (Auto) 9.8 L, [place] % (Auto) 5.8, Eos % (Auto) 2.2, Baso % (Auto) 0.3, Neut # (Auto) 6.3, Lymph # (Auto) 0.8, [place] # (Auto) 0.4, Eos # (Auto) 0.2, Baso # (Auto) 0.0 10/18/19 06:20: Sodium 132 L, Potassium 5.2 H, Chloride 99, Carbon Dioxide 28, Anion Gap 10.2, BUN 2 L, Creatinine 0.45 L, Estimated Creat Clear 160, Estimated GFR 200, Est GFR ( Amer) 243, Glucose 80, Calcium 7.9 L Assessment and Plan (1) Hypokalemia Current visit: Yes Status: Acute Category: Medical Code(s): E87.6 - Hypokalemia (2) Hyponatremia Current visit: Yes Status: Acute Category: Medical Code(s): E87.1 - Hypo- osmolality and hyponatremia (3) Chronic pain Current visit: No Status: Acute Qualifiers: Chronic pain type: other chronic pain Qualified Code(s): G89.29 - Other chronic pain Category: Medical Code(s): G89.29 - Other chronic pain (4) Anemia Current visit: Yes Status: Acute Qualifiers: Anemia type: unspecified type Qualified Code(s): D64.9 - Anemia, unspecified Category: Medical Code(s): D64.9 - Anemia, unspecified (5) CAD (coronary artery disease) Current visit: No Status: Chronic Qualifiers: Coronary Disease-Associated Artery/Lesion type: [place] artery [place] vs. transplanted heart: [place] heart Associated angina: with other forms of angina Qualified Code(s): I25.118 - Atherosclerotic heart disease of [place] coronary artery with other forms of angina pectoris Category: Medical Code(s): I25.10 - Atherosclerotic heart disease of [place] coronary artery without angina pectoris (6) Hypocalcemia Current visit: Yes Status: Acute Category: Medical Code(s): E83.51 - Hypocalcemia (7) UTI (urinary tract infection) Current visit: Yes Status: Acute Qualifiers: Urinary tract infection type: site unspecified Hematuria presence: without hematuria Qualified Code(s): N39.0 - Urinary tract infection, site not specified Category: Medical Code(s): N39.0 - Urinary tract infection, site not specified (8) Cerebral palsy Current visit: Yes Status: Acute Category: Medical Code(s): G80.9 - Cerebral palsy, unspecified (9) UTI (urinary tract infection) due to urinary indwelling [place] catheter Current visit: Yes Status: Acute Qualifiers: Indwelling urinary catheter type: indwelling urethral catheter Category: Medical Code(s): T83.511A - Infection and inflammatory reaction due to indwelling urethral catheter, initial encounter; N39.0 - Urinary tract infection, site not specified (10) Hypomagnesemia Current visit: Yes Status: Acute Category: Medical Code(s): E83.42 - Hypomagnesemia (11) Acute on chronic systolic CHF (congestive heart failure) Current visit: Yes Status: Acute Category: Medical Code(s): I50.23 - Acute on chronic systolic (congestive) heart failure (12) Chronic systolic heart failure Current visit: No Status: Chronic Category: Medical Code(s): I50.22 - Chronic systolic (congestive) heart failure - Assessment and plan all Dx Assessment and Plan for all problems:: I reviewed the CT scan images. This could be either severe appendicitis with adjacent inflammation of the ileocecal region versus possible primary ileocolitis with secondary inflammation of the appendix. Nonetheless, given the patient's profound medical comorbidities and nature of his problem any surgical intervention would carry great risk for suboptimal outcome at this institution with significant risk of perioperative morbidity and mortality. Surgical intervention would likely require laparotomy with colonic resection. For this reason I advocate immediate transfer to tertiary facility for definitive care.
--- NOTE | 2019-10-18 10:10 | Discharge Summary ---
General - General Admission date:: 10/15/19 Discharge date: 10/18/19 HPI HPI: this wm from senior care presents with reported swelling - s is a 49-year-old male with a past medical history significant for congestive heart failure, cerebral palsy, hyperlipidemia who presents to the emergency department for evaluation of extremity swelling and low blood pressure. Patient states that he always has low blood pressure and this is likely true given his history of significant chronic heart failure. Previous primary care visit on 10/06 shows a baseline blood pressure of 87 systolic. Patient actually has no acute complaints and states he is just here because the caregivers at his assisted living facility said that he was "swallowing". They report here his that they were concerned about left-sided swelling of the body and low blood pressure. Patient is currently being treated for UTI with Keflex, has no complaints in this arena. He denies any difficulty breathing. pt was admitted with abn labs and will be given ivf and k - Hospital Course Hospital Course: pt has did well and tolerated fluids and k replacement - he has chronic hurtado and also has sig cardiac disease with cabg at young age - he was seen by [facility] echo, 02/2019: 2D 1. Left atrium is mildly enlarged, left ventricle is mildly dilated, there is severely reduced left ventricular systolic function, visually estimated ejection fraction 20-25%, there is marked hypokinesis involving mid to distal septum, anterior, anterior anteroapical, apex, inferior apical wall. There is no left ventricular thrombus seen, definitely contrast was utilized to delineate endocardial surfaces. 2. The right atrium and right ventricle are mildly enlarged with normal contractility., There is an AICD lead seen in the right ventricle. 3. The aortic valve is thickened and calcified leaflet continue to display mobility. 4. The mitral and tricuspid valve leaflets are minimally thickened. 5. The pulmonic valve is poorly visualized. 6. No significant pericardial effusion noted. DOPPLER INTERROGATION: Doppler interrogation of the aortic, mitral and tricuspid valvular presence of mild mitral and moderate tricuspid regurgitation, calculated right ventricular systolic pressure 46 mmHg represents moderate pulmonary hypertension, grade 1 diastolic dysfunction seen with tissue Doppler evidence of raised left atrial pressure. Inferior vena cava is not well visualized. CONCLUSION: 1. Biatrial enlargement, dilated left ventricle, severely reduced left ventricular systolic function, visually estimated ejection fraction of 20-25%, with multiple segmental wall motion abnormality described above, there is no left ventricular thrombus seen, a contrast was utilized to delineate endocardial Ischemic Cardiomyopathy with LV aneurysm and V. tach, on Amiodarone and Xarelto A. AICD generator changed, 2009 and 02/2017 ([facility]) B. Last interrogation, 08/2017, AP 30 % LINE MOVER <1% AT/AF [place] <1%, Battery life 6 years 2. CAD A. CABG at age 24 B. [facility], 05/2019, for pre-op evaluation for prostate surgery ANGIOGRAPHIC RESULTS: 1. The left main artery normal 2. The left anterior descending artery ostially occluded 3. The ramus intermedius is a moderate size vessel with mild 10-20% stenoses 4. The circumflex artery is a nondominant yet still large vessel with moderate vascular ectasia and slow filling but no stenosis greater than 10% 5. The right coronary artery is a large caliber codominant vessel with moderate vascular ectasia accompanied by slow CHRISTEN II flow 6. The GAITAN ventriculogram reveals severe left ventricular dilatation with severely reduced ejection fraction estimated at 20%. The apex is calcified aneurysmal with an apical intramural thrombus 7. The left ventricular end-diastolic pressure 10 mmHg 8. The saphenous vein graft to the right coronary artery is ostially occluded 9. The saphenous vein graft to the LAD is widely patent 10. The saphenous vein graft to the diagonal artery is widely patent IMPRESSION: 1. Adequate coronary artery revascularization as described above 2. Severely reduced ejection fraction with severe left ventricular dilatation accompanied by large aneurysmal calcified apical thrombosed apex 3. Normal left ventricular end-diastolic pressure 4. Chronically occluded saphenous vein graft to the right coronary artery 5. Widely patent saphenous vein graft to a diagonal artery 6. Widely patent saphenous vein graft to an LAD which supplies the aneurysmal akinetic anterior apical wall PLAN: 1. Patient is a acceptable risk to proceed with prostate surgery. There is nothing in the [employer] which can be currently performed to reduce patient's perioperative risk. 2. Correlation should be used perioperatively not to fluid overload patient. 3. Ongoing therapy for systolic congestive heart failure as well as standard therapy for ischemic heart disease 3. History of CVA, age 32 A. Chronic anticoagulation surfaces. 2. Mild mitral and moderate tricuspid regurgitation, calculated right ventricular systolic pressure is 46 mmHg consistent with moderate pulmonary hypertension, inferior vena cava is not well visualized. 3. Grade 1 diastolic dysfunction seen with tissue Doppler evidence of raised left atrial pressure . Hyperlipidemia History of present illness: 49-year-old white male resident of [place] in [facility] was sent to [facility] ER for evaluation of swelling. Patient has significant coronary history as noted above including congestive heart failure. BNP this admission is 88 but patient became more short of breath last evening and responded well to IV Lasix. Chest x-ray is pending at this time. Patient states that shortness of breath seems to be back to baseline. Patient's hyponatremia and hypokalemia have responded to therapy but are not yet back to normal. Neurofibromatosis 5. Seizure Disorder 6. Tobacco use A. COPD/asthma 7. HTN 8. Hyperlipidemia pt was also seen by urology-Patient is a 49-year-old white male with a history of congestive heart failure, cerebral palsy presents to the emergency room yesterday at [facility] for evaluation of lower extremity swelling and low blood pressure. Patient was coherent and is able to give some history. States he sent to [facility] nursing staff concerned. He is currently being treated for UTI with Keflex and has an indwelling Hurtado catheter for which urology was consulted. We were able to contact the patient's assisted-living staff who gave us more information about his past medical history. He sees a urologist in [facility] by the name of Steff Macias every 3 months. Apparently he has a history of prostate cancer which is being followed with watchful waiting. It is not documented why his Hurtado catheter was placed he has had it for almost a year and it is changed monthly by home health at the facility. He was last changed about 3 weeks ago by report. Urine culture was performed here but is pending. His white count is normal at 6.8. Kidney function is normal at 0.58. Clear urine in his catheter. Urinalysis did show positive nitrates 10-20 white cells but this was obtained from the catheter. 49-year-old white male with cerebral palsy. He sees a urologist in [facility] for management of his prostate cancer. Is currently being monitored closely with serial PSAs. He has an indwelling Hurtado catheter that has been present for about a year. This is changed monthly. He sees his urologist every 3 months. No current acute urologic events. Patient to continue follow-ups with Dr. Macias in [place] for management of his Hurtado catheter and his prostate cancer. pt started complaining of abd pain and had ct which showed -INDINGS: Initial images were performed at 1538 hours. Additional imaging was requested with delayed imaging through the abdomen pelvis for better bowel opacification with oral contrast. These images were performed at 1828 hours. Centrilobular and paraseptal emphysematous changes are present in the lung bases along with some fibrotic/atelectatic change. The liver, spleen, gallbladder, pancreas, and kidneys have an unremarkable appearance. There is an IVC filter present. The tip is just inferior to the level of the renal veins. The There is severe mural thickening involving the distal tendon 15 cm of the ileum as well as the proximal margins of the cecum with mild gaseous distention of the colon measuring up to 7 cm. The appendix is thickened. There is a fluid collection at the tip of the appendix measuring 18 mm with stranding of the periappendiceal fat at this region. No intestinal obstruction or free air. There is a mild amount of abdominal and peritoneal ascites with perihepatic and perisplenic fluid as well as fluid in the pelvis. There is a Hurtado catheter in place.. There is marked thickening of the wall of the urinary bladder. Deformity once again noted involving the lumbosacral spine which is unchanged with significant dural ectasia and possible right-sided meningocele or pseudomeningocele extending into the presacral space IMPRESSION: 1. Severe ileocolitis 2. Thickened appendix suggesting acute appendicitis with an 18 mm periappendiceal fluid collection suspicious for a small periappendiceal abscess. The appendicitis could be primary or secondary 3. Marked thickening of the urinary bladder wall which may be inflammatory/infectious or neoplastic and seen by surg and was made npo and given invanz -atient is a 49-year-old male who is a resident of a senior care with a history of reported coronary artery disease, ischemic cardiomyopathy with relatively recent echocardiogram revealing an ejection fraction of 20%, previous CABG performed at age 24, apparent history of DVT and prior stroke at age 32 with IVC filter in place on Xarelto with an AICD present for history of reported V. 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 Upon presentation to the emergency department he was found to have electrolyte derangement and mild hypotension. He was admitted for inpatient management. Yesterday he had some complaints of lower abdominal pain and discomfort. Late yesterday evening he had undergone a CT scan of the abdomen and pelvis to evaluate this. This reveals several findings but most notable for "severe ileocolitis with thickened appendix suggesting acute appendicitis with an 18 mm periappendiceal fluid collection suspicious for a small periappendiceal abscess. The appendicitis could be primary or secondary." Surgical consultation was obtained for this morning. History is difficult to obtain from the patient but he does state that he has lower abdominal pain across his right lower quadrant and beltline area. reviewed the CT scan images. This could be either severe appendicitis with adjacent inflammation of the ileocecal region versus possible primary ileocolitis with secondary inflammation of the appendix. Nonetheless, given the patient's profound medical comorbidities and nature of his problem any surgical intervention would carry great risk for suboptimal outcome at this institution with significant risk of perioperative morbidity and mortality. Surgical intervention would likely require laparotomy with colonic resection. For this reason I advocate immediate transfer to tertiary facility for definitive care. discussed with pt who understands and agrees to transfer - Objective Vital signs: Temp Pulse Resp BP Pulse Ox 97.6 F 74 21 100/67 L 94 L 10/18/19 08:00 10/18/19 08:00 10/18/19 08:00 10/18/19 08:00 10/18/19 08:00 no acute distress, thin - *Routine HEENT Exam Head: Present: normocephalic Eye: Present: EOMI, PERRL ENT: Present: mucous membranes dry - *Routine Neck Exam Absent: JVD - Routine Chest/Breast/Axilla Exam Comments: has had sternal surg partially removed - *Routine Respiratory Exam Present: CTA bilaterally - *Routine Cardiovascular Exam Present: RRR, murmur, S4 - *Routine Abdominal Exam Present: soft, tenderness. Absent: rebound, rigid Comments: tender rt lower abd - *Routine Extremities Exam Absent: calf tenderness - *Routine Skin Exam Comments: has skin lesions consistent with neurofibomatosis - *Routine Neurological Exam Present: CN II-XII intact - Routine Psychiatric Exam Present: normal affect Results Labs on day of discharge: Labs from last 24 hours 10/18/19 10/18/19 10/17/19 06:20 06:20 22:23 WBC 7.7 RBC 4.62 Hgb 12.2 L Hct 38.4 L MCV 83.2 MCH 26.5 L MCHC 31.9 RDW 21.3 H Plt Count 226 MPV 7.5 Neut % (Auto) 82.0 H Lymph % (Auto) 9.8 L Luce % (Auto) 5.8 Eos % (Auto) 2.2 Baso % (Auto) 0.3 Neut # (Auto) 6.3 Lymph # (Auto) 0.8 Luce # (Auto) 0.4 Eos # (Auto) 0.2 Baso # (Auto) 0.0 Sodium 132 L 130 L Potassium 5.2 H 4.4 D Chloride 99 94 L Carbon Dioxide 28 32 Anion Gap 10.2 8.4 BUN 2 L 2 L D Creatinine 0.45 L 0.51 L Estimated Creat Clear 160 138 Estimated GFR 200 173 Est GFR ( Amer) 243 210 Glucose 80 84 Calcium 7.9 L 8.1 L Total Bilirubin 0.4 AST 15 ALT 21 Alkaline Phosphatase 104 Total Protein 5.5 L Albumin 2.3 L Globulin 3.2 Albumin/Globulin Ratio 0.7 L Amylase 23 L Lipase 46 L 10/17/19 22:23 WBC 7.4 RBC 4.57 L Hgb 12.2 L Hct 37.6 L MCV 82.4 MCH 26.7 L MCHC 32.4 RDW 21.0 H Plt Count 222 MPV 8.0 Neut % (Auto) 79.5 Lymph % (Auto) 11.9 Luce % (Auto) 7.4 Eos % (Auto) 1.0 Baso % (Auto) 0.3 Neut # (Auto) 5.9 Lymph # (Auto) 0.9 Luce # (Auto) 0.5 Eos # (Auto) 0.1 Baso # (Auto) 0.0 Sodium Potassium Chloride Carbon Dioxide Anion Gap BUN Creatinine Estimated Creat Clear Estimated GFR Est GFR ( Amer) Glucose Calcium Total Bilirubin AST ALT Alkaline Phosphatase Total Protein Albumin Globulin Albumin/Globulin Ratio Amylase Lipase Preliminary micro results at discharge 10/15/19 21:46 Urine Culture - Preliminary Urine,Catheterized Gram Negative Rods Gram Negative Rods#2 DS: Diagnosis - Discharge Diagnosis (1) Hypokalemia Status: Acute (2) Hyponatremia Status: Acute (3) Chronic pain Status: Acute (4) Anemia Status: Acute (5) CAD (coronary artery disease) Status: Chronic (6) Hypocalcemia Status: Acute (7) UTI (urinary tract infection) Status: Acute (8) Cerebral palsy Status: Acute (9) UTI (urinary tract infection) due to urinary indwelling Hurtado catheter Status: Acute (10) Hypomagnesemia Status: Acute (11) Acute on chronic systolic CHF (congestive heart failure) Status: Acute (12) Chronic systolic heart failure Status: Chronic (13) Automatic implantable cardioverter-defibrillator in situ Status: Chronic (14) Ileocolitis Status: Acute (15) Appendicitis Status: Acute (16) Pseudomeningocele Status: Acute (17) Neurofibromatosis Status: Acute Discharge Plan - Patient Discharge Instructions ACTIVITY: Continue current activity DIET: NPO Patient Instructions: DI for Urinary Tract Infection (UTI), DI for Hypokalemia, DI for Hypocalcemia, DI for Hyponatremia - Follow up Plan Disposition: Xfer Short-Term Hosp Home Medications: Home Medications Medication Instructions Recorded Confirmed Type atorvastatin 20 mg tablet 20 mg PO HS 03/03/19 10/15/19 History buspirone 15 mg tablet 15 mg PO QID tab 03/03/19 10/15/19 History divalproex 250 mg tablet,delayed 750 mg PO BID tab 03/03/19 10/15/19 History release isosorbide mononitrate 30 mg 30 mg PO DAILY 03/03/19 10/15/19 History tablet,extended release 24 hr lisinopril 2.5 mg tablet 2.5 mg PO BID 03/03/19 10/15/19 History lorazepam 0.5 mg tablet 0.5 mg PO QHS PRN 03/03/19 10/15/19 History metoprolol succinate 50 mg 50 mg PO DAILY 03/03/19 10/15/19 History tablet,extended release 24 hr mirtazapine 7.5 mg tablet 7.5 mg PO HS tab 03/03/19 10/15/19 History nitroglycerin 0.4 mg sublingual 0.4 mg SUBLINGUAL Q5MINP PRN 03/03/19 10/15/19 History tablet oxycodone-acetaminophen 10 mg-325 1 tab PO Q6HP PRN 03/03/19 10/15/19 History mg tablet rivaroxaban 20 mg tablet 20 mg PO DAILY 03/03/19 10/15/19 History spironolactone 25 mg tablet 25 mg PO DAILY 03/03/19 10/15/19 History amiodarone 200 mg tablet 100 mg PO DAILY tab 06/02/19 10/15/19 History furosemide 40 mg tablet 40 mg PO DAILY 06/02/19 10/15/19 History levothyroxine 25 mcg capsule 25 mcg PO DAILY 06/02/19 10/15/19 History risperidone 1 mg tablet 1 mg PO BID tab 06/02/19 10/15/19 History tamsulosin 0.4 mg capsule 0.4 mg PO DAILY 06/02/19 10/15/19 History Albuterol Sulfate [Albuterol HFA 2 puffs IH Q4HP PRN 10/15/19 10/15/19 History Inhaler] Aspirin [Aspirin 81mg chewable 81 mg PO DAILY 10/15/19 10/15/19 History tab] Cyanocobalamin (Vitamin B-12) 1,000 mcg PO DAILY 10/15/19 10/15/19 History [Vitamin B-12 1000mcg Tablet] Gabapentin [Gabapentin 300mg Cap] 300 mg PO TID 10/15/19 10/15/19 History Nicotine [Nicotine Patch 21 mg TD DAILY 10/15/19 10/15/19 History 21mg/24hrs] OLANZapine [Olanzapine] 10 mg PO BID 10/15/19 10/15/19 History Pantoprazole Sodium [Protonix 40mg 40 mg PO DAILY 10/15/19 10/15/19 History tablet] Sertraline HCl [Zoloft 50mg tablet] 50 mg PO PM 10/15/19 10/15/19 History Sertraline HCl [Zoloft] 100 mg PO DAILY 10/15/19 10/15/19 History cephALEXin [cephALEXin 500mg 500 mg PO BID 10/15/19 10/15/19 History capsule*] guaiFENesin [Mucinex 600mg tablet] 600 mg PO BID 10/15/19 10/15/19 History Prescriptions/Medication Reconciliation: Discontinued lorazepam 0.5 mg tablet 0.5 mg PO QHS PRN PRN Reason: Anxiety atorvastatin 20 mg tablet 20 mg PO HS buspirone 15 mg tablet 15 mg PO QID tab divalproex 250 mg tablet,delayed release 750 mg PO BID tab isosorbide mononitrate 30 mg tablet,extended release 24 hr 30 mg PO DAILY lisinopril 2.5 mg tablet 2.5 mg PO BID metoprolol succinate 50 mg tablet,extended release 24 hr 50 mg PO DAILY mirtazapine 7.5 mg tablet 7.5 mg PO HS tab nitroglycerin 0.4 mg sublingual tablet 0.4 mg SUBLINGUAL Q5MINP PRN PRN Reason: Chest Pain oxycodone-acetaminophen 10 mg-325 mg tablet 1 tab PO Q6HP PRN PRN Reason: pain spironolactone 25 mg tablet 25 mg PO DAILY rivaroxaban 20 mg tablet 20 mg PO DAILY amiodarone 200 mg tablet 100 mg PO DAILY tab risperidone 1 mg tablet 1 mg PO BID tab tamsulosin 0.4 mg capsule 0.4 mg PO DAILY levothyroxine 25 mcg capsule 25 mcg PO DAILY furosemide 40 mg tablet 40 mg PO DAILY Nicotine [Nicotine Patch 21mg/24hrs] 21 mg TD DAILY OLANZapine [Olanzapine] 10 mg PO BID Sertraline HCl [Zoloft 50mg tablet] 50 mg PO PM Albuterol Sulfate [Albuterol HFA Inhaler] 2 puffs IH Q4HP PRN PRN Reason: Shortness Of Breath Or Wheezing Cyanocobalamin (Vitamin B-12) [Vitamin B-12 1000mcg Tablet] 1,000 mcg PO DAILY Sertraline HCl [Zoloft] 100 mg PO DAILY Aspirin [Aspirin 81mg chewable tab] 81 mg PO DAILY Gabapentin [Gabapentin 300mg Cap] 300 mg PO TID guaiFENesin [Mucinex 600mg tablet] 600 mg PO BID Pantoprazole Sodium [Protonix 40mg tablet] 40 mg PO DAILY cephALEXin [cephALEXin 500mg capsule*] 500 mg PO BID - Problem Reconciliation Problems Reviewed?: Yes
--- NOTE | 2019-10-18 14:40 | Pharmacy Consult Notes ---
[facility] Pharmacy VTE Monitoring - Patient Demographics Admission date: 10/15/19 Report Date: 10/18/19 Time: 14:40 Allergies/Adverse Reactions: Patient Allergies acetaminophen [ACETAMINOPHEN] Allergy (Unknown, Verified 10/06/19 11:08) hydrocodone [HYDROCODONE] Allergy (Unknown, Verified 10/06/19 11:08) Penicillins [PENICILLINS] Allergy (Unknown, Verified 10/06/19 11:08) Height: 1.68 m Weight: 56.245 kg Patient Problems: Current Active Problems Hyponatremia (Acute) Hypokalemia (Acute) Anemia (Acute) Hypocalcemia (Acute) UTI (urinary tract infection) (Acute) Cerebral palsy (Acute) UTI (urinary tract infection) due to urinary indwelling Gonzalez catheter (Acute) Hypomagnesemia (Acute) Acute on chronic systolic CHF (congestive heart failure) (Acute) Ileocolitis (Acute) Appendicitis (Acute) Pseudomeningocele (Acute) Neurofibromatosis (Acute) - VTE Risk Labs: VTE Related Lab Results Hgb 12.2 g/dL (14.1-18.0) L 10/18/19 06:20 Hct 38.4 % (42.0-52.0) L 10/18/19 06:20 Plt Count 226 K/mm3 (142-424) 10/18/19 06:20 BUN 2 mg/dL (7-18) L 10/18/19 06:20 Creatinine 0.45 mg/dL (0.70-1.30) L 10/18/19 06:20 Estimated Creat Clear 160 mL/min (50-200) 10/18/19 06:20 Was VTE Risk Assessment Performed: Yes VTE Score: 4 VTE Risk Level: Low Risk - Prophylaxis VTE Prophylaxis Ordered?: Yes Types of VTE Prophylaxis: TEDS Knee High Location of Applied Device: Bilateral Lower Extremeties
== END 2019-10-18 17:21 | disposition short-term general hospital (02) | DRG 698 ==
LOC: ER 13:18 → 2ND 13:18 → OBSVTOIN 14:33 → 2ND 15:32
PROVIDERS: ADMIT Emergency Medicine; ATTEND Emergency Medicine
CPT/HCPCS: 36415; 71020; 71046; 74177; 74178; 80048; 80053; 81001; 82150; 83690; 83735; 83880; 84132; 85007; 85025; 87086; 87088; 87186; 87507; 93005; 99284; J1335; Q9967